=== PATIENT | female | born 1970 | race Caucasian/White ===

== ENCOUNTER 2022-07-20 12:41 | Outpatient (OUT) | payer OTHER, SELFPAY ==
[2022-07-20 13:56] LABS: Alanine Aminotransferase 45 U/L (14-59); Albumin Globulin Ratio 1.1; Albumin Level 3.9 g/dL (3.4-5.0); Alkaline Phosphatase 143 U/L (46-116); Anion Gap 11.6; Aspartate Amino Transferase 36 U/L (15-37); BUN Creatinine Ratio 24.5; Bilirubin Total 0.6 mg/dL (0.2-1.0); Calcium 8.9 mg/dL (8.5-10.1); Carbon Dioxide 27.1 mmol/L (21.0-32.0); Chloride 101 mmol/L (98-107); Estimated GFR (African America >60 (>=60); Estimated GFR (Non-African Ame >60 (>=60); Globulin 3.5 g/dL; Glucose 91 mg/dL (74-106); Magnesium 2.1 mg/dL (1.8-2.4); Phosphorus 4.1 mg/dL (2.6-4.7); Potassium 3.7 mmol/L (3.5-5.1); Sodium 136 mmol/L (136-145); Total Protein 7.4 g/dL (6.4-8.2)
[2022-07-20 14:03] LABS: Basophils Percent Auto 0.5 % (0.2-2.0); Eosinophils Absolute Auto 0.1 10^3/uL (0.0-0.7); Eosinophils Percent Auto 1.9 % (0.9-7.0); Hematocrit 40.7 % (36.0-48.0); Hemoglobin 13.4 g/dL (12.0-16.0); Immature Granulocytes Abs Auto 0.01 10^3/uL (0.00-0.03); Immature Granulocytes Pct Auto 0.2 % (0.0-0.5); Lymphocytes Absolute Auto 1.6 10^3/uL (1.2-3.8); Lymphocytes Percent Auto 27.3 % (20.5-60.0); Mean Corpuscular HGB Conc 32.9 g/dL (29.9-35.2); Mean Corpuscular Hemoglobin 30.4 pg (26.7-34.0); Mean Corpuscular Volume 92.3 fL (81.0-99.0); Mean Platelet Volume 10.9 fL (9.5-13.5); Monocytes Absolute Auto 0.4 10^3/uL (0.3-0.8); Monocytes Percent Auto 6.7 % (1.7-12.0); Neutrophils Absolute Auto 3.7 10^3/uL (1.4-6.5); Neutrophils Percent Auto 63.4 % (43.0-75.0); Platelet Count 192 10^3/uL (150-450); Red Blood Count 4.41 10^6/uL (4.20-5.40); White Blood Count 5.8 10^3/uL (4.0-11.0)
[2022-07-24 19:07] LABS: Vitamin B1 (Thiamine), Blood 133.2 nmol/L (66.5-200.0)
== END 2022-07-20 12:42 ==
LOC: LAB 12:46
PROVIDERS: PCP Family Medicine
DX: K90.9 Intestinal malabsorption, unspecified (principal); Z98.84 Bariatric surgery status; I10 Essential (primary) hypertension; E11.9 Type 2 diabetes mellitus without complications; R60.9 Edema, unspecified; K21.9 Gastro-esophageal reflux disease without esophagitis
CPT/HCPCS: 36415; 80053; 82306; 82607; 82728; 82746; 83540; 83735; 84100; 84425; 85025

== ENCOUNTER 2023-07-26 09:10 | Outpatient (OUT) | payer OTHER, SELFPAY ==
[2023-07-26 09:43] LABS: Basophils Percent Auto 0.6 % (0.2-2.0); Eosinophils Absolute Auto 0.1 10^3/uL (0.0-0.7); Eosinophils Percent Auto 2.7 % (0.9-7.0); Hematocrit 41.5 % (36.0-48.0); Hemoglobin 13.5 g/dL (12.0-16.0); Lymphocytes Absolute Auto 1.7 10^3/uL (1.2-3.8); Lymphocytes Percent Auto 34.2 % (20.5-60.0); Mean Corpuscular HGB Conc 32.5 g/dL (29.9-35.2); Mean Corpuscular Hemoglobin 30.4 pg (26.7-34.0); Mean Corpuscular Volume 93.5 fL (81.0-99.0); Mean Platelet Volume 10.6 fL (9.5-13.5); Monocytes Absolute Auto 0.4 10^3/uL (0.3-0.8); Monocytes Percent Auto 7.4 % (1.7-12.0); Neutrophils Absolute Auto 2.7 10^3/uL (1.4-6.5); Neutrophils Percent Auto 55.1 % (43.0-75.0); Platelet Count 182 10^3/uL (150-450); Red Blood Count 4.44 10^6/uL (4.20-5.40); Red Cell Distribution Width 13.4 % (11.0-15.0); White Blood Count 4.9 10^3/uL (4.0-11.0)
[2023-07-26 10:29] LABS: Percent Iron Saturation 24.6 %
[2023-07-26 10:38] LABS: Alanine Aminotransferase 82 U/L (14-59); Albumin Globulin Ratio 1.2; Alkaline Phosphatase 133 U/L (46-116); Anion Gap 12.6; Aspartate Amino Transferase 55 U/L (15-37); BUN Creatinine Ratio 26.8; Bilirubin Total 0.7 mg/dL (0.2-1.0); Calcium 8.8 mg/dL (8.5-10.1); Carbon Dioxide 27.3 mmol/L (21.0-32.0); Chloride 103 mmol/L (98-107); Estimated GFR (African America >60 (>=60); Estimated GFR (Non-African Ame >60 (>=60); Globulin 3.4 g/dL; Glucose 94 mg/dL (74-106); Phosphorus 3.9 mg/dL (2.6-4.7); Potassium 3.9 mmol/L (3.5-5.1); Sodium 139 mmol/L (136-145); Total Protein 7.4 g/dL (6.4-8.2)
[2023-07-29 16:07] LABS: Vitamin B1 (Thiamine), Blood 152.2 nmol/L (66.5-200.0)
== END 2023-07-26 09:11 | disposition home or self-care (01) ==
LOC: LAB 09:12
PROVIDERS: PCP Family Medicine; Visit Provider Nurse Practitioner Family
DX: K90.9 Intestinal malabsorption, unspecified (principal); Z98.84 Bariatric surgery status; I10 Essential (primary) hypertension; M19.90 Unspecified osteoarthritis, unspecified site; R60.9 Edema, unspecified; K21.9 Gastro-esophageal reflux disease without esophagitis
CPT/HCPCS: 36415; 80053; 82306; 82607; 82728; 82746; 83540; 83550; 83735; 84100; 84425; 85025

== ENCOUNTER 2024-07-11 09:14 | Outpatient (OUT) | payer OTHER, SELFPAY ==
--- OUTSIDE RECORDS SUMMARY | 2012-06-04 07:00 | XMS_ITS | Encounter Summary ---
Author Organization [facility] Address [address] [place] [address] Care Team Providers Care Occupational Health And Safety Officer Name Role Phone Unavailable Primary Care Provider Unavailabl e Encounter Details Date Type Department Care Team (Late st Contact Info) Description 06/04/2012 7:00 AM EDT Hospital Encounter [facility] [address] [place], [place] [id number] [place] [address] [place], [place] [id number] Social History Tobacco Use Types Packs/Day Years Used Date Smoking Tobacco: Never Smokeless Tobacco: Never Alcohol Use Standard Drinks/Week Comments Yes 0 (1 standard drink = 0.6 oz pur e alcohol) socially Comments No Sex and Gender Information Value Date Recorded Sex Assigned at Not on file Legal Sex Female 11:04 AM EDT Gender Identity Not on file Sexual Orientation Not on file documented as of this encounter Plan of Treatment Not on file documented as of this encounter Procedures Procedure Name Priority Date/Time Associated Diagnosis Comments EKG REPORT 06/18/2012 2:37 PM EDT OPERATIVE REPORT Routine 06/17/2012 8:30 AM EDT documented in this encounter Results * EKG REPORT (06/18/2012 2:37 PM EDT) Narrative Procedure Note SCANNING, HPF - 06/18/2012 2:37 PM EDT us Hpf Scanning ECG ORDERABLES Final Result * Operative Report (06/17/2012 8:30 AM EDT) 06/17/2012 8:30 AM EDT Narrative [facility] OR REPORTS - 06/17/2012 8:30 AM EDT PERIOPERATIVE RECORD [facility] - INTRAOPERATIVE RECORD PATIENT NAME: MERRICK URIBE GENDER: F DATE: 1970 AGE: 41 Years ACTUAL CASE START (SV SA PT OR IN): 06/13/2012 11:25 PATIENT INFORMATION PATIENT IDENTIFICATION: ARMBAND BIRTHDAY CASE GENERAL INFORMATION ACTUAL OR: OR ROOM 4 AT [facility] PROCEDURE CONSENT ON CHART: Yes HISTORY / PHYSICAL ON CHART: Yes UNPLANNED RETURN TO SURGERY WITHIN 24 HOURS?: No SITE MARKED / PROCEDURE AGREES WITH: SURGERY SCHEDULE: Yes SURGERY CONSENT: Yes HISTORY PHYSICAL: Yes PER DOCTOR'S ORDER: Yes PREOP ANTIBIOTIC CASE SERVICE: PLASTIC/RECONSTRUCTIVE SURGERY CASE TYPE: SCHEDULED PATIENT TYPE: AMBULATORY SURGERY CASE WOUND CLASS: CLASS I / CLEAN PREOP DIAGNOSIS: COSMETIC POSTOP DIAGNOSIS: COSMETIC ARE IMPLANTS NEEDED?: No PATIENT ASSESSMENT CHECKER INTERVIEW: 11:20 SKIN CONDITION: WARM, DRY, AND INTACT PATIENT LIMITATIONS: NO LIMITATIONS DOCUMENTED BLEEDING RISK: No INFECTION PRIOR TO ANESTHESIA: No CASE STAFF NAME:TEODORO JOSE RN ROLE:CHECKER NAME:ERASMO NG CST ROLE:SCRUB HYDRAULIC PLUMBER HELPER NAME:OTIS DUFF SWITCHBOARD RECEPTIONIST ROLE:ANESTHESIA SWITCHBOARD RECEPTIONIST NAME:DAINEL BARRIOS MDA ROLE:ANESTHESIOLOGIST NAME:ROGER ROLE:RESIDENT CASE ANESTHESIA INFORMATION ANESTHESIA TYPE: GENERAL ANESTHESIA Page 1 of 5 on 06/17/2012 08:32 PATIENT NAME: MERRICK URIBE GENDER: F DATE: 1970 AGE: 41 Years ACTUAL CASE START (SV SA PT OR IN): 06/13/2012 11:25 ASA CLASSIFICATION: ASA 2 IV ASSESSMENT TIMES SCHED CASE START: 06/13/2012 11:30 SCHED CASE STOP: 06/13/2012 15:30 ANESTHESIA READY: 06/13/2012 11:30 ACTUAL CASE START (SV SA PT OR IN): 06/13/2012 11:25 ACTUAL CASE STOP (SV SA PT OR OUT): 06/13/2012 14:40 SURGICAL SAFETY CHECKLIST BEFORE INDUCTION OF ANESTHESIA DATE/TIME: 06/13/2012 11:20 PATIENT HAS CONFIRMED IDENTITY, SITE, PROCEDURE AND CONSENT: Yes SITE MARKED : Yes PATIENT ALLERGIES REVIEWED AND CONFIRMED: Yes BEFORE SKIN INCISION DATE/TIME: 06/13/2012 11:27 ALL TEAM MEMBERS HAVE INTRODUCED THEMSELVES BY NAME AND ROLE: Yes SURGEON, ANESTHESIA, AND NURSE VERBALLY CONFIRMED PATIENT, SITE, AND PROCEDURE: Yes SURGEON REVIEWED CRITICAL OR UNEXPECTED STEPS, OPERATIVE DURATION, AND ANTICIPATED BLOOD LOSS: Yes ANESTHESIA HAS REVIEWED PATIENT SPECIFIC CONCERNS: Yes NURSING TEAM REVIEWED EQUIPMENT ISSUES/CONCERNS AND CONFIRMED STERILITY, INCLUDING INDICATOR : Yes ANTIBIOTIC PROPHYLAXIS HAS BEEN GIVEN WITHIN THE LAST 60 MINUTES: Yes ESSENTIAL IMAGING DISPLAYED: Not Applicable BEFORE PATIENT LEAVES OPERATING ROOM NURSE VERBALLY CONFIRMED WITH THE TEAM: NAME OF PROCEDURE RECORDED: Yes INSTRUMENT, SPONGE AND NEEDLE COUNTS ARE CORRECT: Yes HOW SPECIMEN IS LABELED, INCLUDING PATIENT NAME: Yes EQUIPMENT PROBLEMS TO BE ADDRESSED: Yes PROCEDURE GENERAL INFORMATION ACTUAL PROCEDURE: ABDOMINOPLASTY-ARROWHEAD LIPOSUCTION BILATERAL MEDIAL/LATERAL THIGHS AND KNEES DATE/TIME RECORDED: 06/13/2012 11:56 CORRECT PATIENT: Yes CORRECT SITE: Yes CORRECT PROCEDURE: YES CORRECT PROCEDURE CONSENT FORM: YES CORRECT POSITION: YES CORRECT IMAGE/RESULTS: YES CORRECT ANTIBIOTIC/IRRIGATION FLUIDS ADMINISTERED: YES SAFETY PRECAUTIONS: YES CORRECT EQUIPMENT: YES ACTUAL PROCEDURE START (INCISION TIME): 06/13/2012 11:58 ACTUAL PROCEDURE STOP (CLOSURE TIME): 06/13/2012 14:30 PRIMARY SURGEON: DANIEL BRUSH MD PRIMARY SURGEON OR IN: 06/13/2012 11:25 PRIMARY SURGEON OR OUT: 06/13/2012 14:15 PROCEDURE SERVICE: PLASTIC/RECONSTRUCTIVE SURGERY PROCEDURE POSITIONAL DEVICES POSITION FOR SURGERY: SUPINE Page 2 of 5 on 06/17/2012 08:32 PATIENT NAME: MERRICK URIBE GENDER: F DATE: 1970 AGE: 41 Years ACTUAL CASE START (SV SA PT OR IN): 06/13/2012 11:25 POSITIONED BY: TEODOOR JOSE RN TABLE: [facility] 3085 POSITIONAL DEVICES: ARMBOARDS BILATERAL SITE: ARMS BILATERAL PROCEDURE PREP SKIN ASSESSMENT: WARM, DRY, AND INTACT SITE: NIPPLES TO MIDTHIGH SKIN PREP: Yes HAIR REMOVAL: No SITE: NIPPLES TO MIDTHIGH PREP SOLUTION: HIBICLENS (4% CHLOREXIDIN GLUCONATE) PREP BY: TEODORO JOSE RN PROCEDURE COUNTS COUNT TYPE: INITAL [X] SPONGES [X] SHARPS [ ] INSTRUMENTS COUNT CORRECT: Yes CHECKER: TEODORO JOSE RN SCRUB: ERASMO NG SOCIAL WELFARE ADMINISTRATOR COUNT TYPE: ENDING [X] SPONGES [X] SHARPS [ ] INSTRUMENTS COUNT CORRECT: Yes CHECKER: TEODORO JOSE RN SCRUB: ERASMO NG SOCIAL WELFARE ADMINISTRATOR [ ] X-RAY TAKEN [X] PHYSICIAN NOTIFIED PROCEDURE EQUIPMENT DESCRIPTION:GENERATOR ESU SERIAL #:[id number] START:06/13/2012 12:52 : SETTIN/40 SITE: SHOULDER RIGHT POSTERIOR ADMINISTERED BY:TEODORO JOSE RN USAGE COMMENT:site clear pre and post op DESCRIPTION:UNIT FORCED AIR WARMER (JEAN MARIE HUGGER) DESCRIPTION:PUMP EPC SERIAL #:[id number] START:06/13/2012 12:53 : SITE: LEGS BILATERAL ADMINISTERED BY:TEODORO JOSE RN USAGE COMMENT:SITE CLEAR PRE AND POST OP PROCEDURE CARE APPARATUS CARE APPARATUS: SEQUENTIAL COMPRESSION DEVICE SITE: LEGS BILATERAL PROCEDURE GENERAL INFORMATION ACTUAL PROCEDURE: LIPOSUCTION OF BILATERAL MEDIAL/LATERAL THIGHS AND KNEES PRIMARY SURGEON: DANIEL BRUSH MD PROCEDURE SERVICE: PLASTIC/RECONSTRUCTIVE SURGERY ABBR: OTH/UNK PROCEDURE COUNTS [ ] X-RAY TAKEN Page 3 of 5 on 06/17/2012 08:32 PATIENT NAME: MERRICK URIBE GENDER: F DATE: 1970 AGE: 41 Years ACTUAL CASE START (SV SA PT OR IN): 06/13/2012 11:25 [ ] PHYSICIAN NOTIFIED PROCEDURE EQUIPMENT DESCRIPTION:GENERATOR ESU DESCRIPTION:UNIT FORCED AIR WARMER (JEAN MARIE HUGGER) CASE MEDICATIONS XYLOCAINE 1% W/ EPI 50ML MIXED WITH 0.9% INJECTABLE SALINE 150ML [ML] ORDERING DRDanni:DANIEL BRUSH MD TIME GIVEN:06/13/2012 13:38 DOSE:300 ML ROUTE:OPSITE SITE:ABDOMEN PATIENT IDENTIFICATION:ARMBAND BIRTHDAY ADMINISTERED BY:DANIEL BRUSH MD 300 ML Total for XYLOCAINE 1% W/ EPI 50ML MIXED WITH 0.9% INJECTABLE SALINE 150ML [ML] in ML *MEDICATION ACCESS [] TIME GIVEN:06/13/2012 12:55 : 0 Total for *MEDICATION ACCESS [] in CEFAZOLIN 1 GRAM IVPB [GM] ORDERING DRDanni:DANIEL BRUSH MD TIME GIVEN:06/13/2012 13:30 DOSE:1 GM ROUTE:IV MEDICATION INDICATOR:ANTIBIOTIC PATIENT IDENTIFICATION:ARMBAND BIRTHDAY ADMINISTERED BY:DANIEL BRUSH MD 1 GM Total for CEFAZOLIN 1 GRAM IVPB [GM] in GM GENTIAN CORA 1ML SYRINGE [APPLIC] ORDERING DR.:DANIEL BRUSH MD TIME GIVEN:06/13/2012 13:37 DOSE:1 APPLIC ROUTE:OPSITE PATIENT IDENTIFICATION:ARM BIRTHDAY ADMINISTERED BY:DANIEL BRUSH MD MEDICATION COMMENT: USED FOR MARKING DURING SURGERY 1 APPLIC Total for GENTIAN CORA 1ML SYRINGE [APPLIC] in APPLIC CLYSIS SOLN: 0.9% NACL 1000ML IV MIXED WITH 1ML EPINEPHRINE 1:1000 [ML] ORDERING DR.:DANIEL BRUSH MD TIME GIVEN:06/13/2012 13:39 DOSE:2000 ML ROUTE:OPSITE SITE:ABDOMEN PATIENT IDENTIFICATION:ARM BIRTH ADMINISTERED BY:DANIEL BRUSH MD 2000 ML Total for CLYSIS SOLN: 0.9% NACL 1000ML IV MIXED WITH 1ML EPINEPHRINE 1:1000 [ML] in ML Page 4 of 5 on 06/17/2012 08:32 PATIENT NAME: MERRICK URIBE GENDER: F DATE: 1970 AGE: 41 Years ACTUAL CASE START ( SA PT OR IN): 06/13/2012 11:25 BUPIVICAINE 0.5% W/EPI (MARCAINE) [ML] ORDERING DRDanni:DANIEL BRUSH MD TIME GIVEN:06/13/2012 12:56 DOSE:40 ML ROUTE:OPSITE SITE:ABDOMEN MEDICATION INDICATOR:LOCAL PATIENT IDENTIFICATION:ARM BIRTHDAY ADMINISTERED BY:DANIEL BRUSH MD 40 ML Total for BUPIVICAINE 0.5% W/EPI (MARCAINE) [ML] in ML CASE TUBES, DRAINS, CATHETERS TUBE, DRAIN, CATHETER:DRAIN RUSTAM-ANTOINE FLAT 10MM [id number] SITE:ABDOMEN INSERTED DATE/TIME:06/13/2012 13:41 INSERTED BY:DANIEL BRUSH MD [ ] TDC IN PLACE ON ARRIVAL TYPE:RUSTAM ANTOINE SIZE:10MM [X]ASSESSMENT COMPLETED RECORDED TIME:06/13/2012 13:41 [ ]DISCONTINUED : CASE DRESSINGS/PACKING DRESSING/PACKING: ABDOMINAL BINDER CASE OUTCOME/DISCHARGE LEVEL OF CONSCIOUSNESS: UNDER CARE OF ANESTHESIA TRANSFER REPORT TIME: 06/13/2012 14:20 REPORT GIVEN BY: TEODORO JOSE RN VERBAL REPORT GIVEN TO: MANASA PEDRO RN TRANSFERRED TO: PHASE I TRANSFERRED BY: TEODORO JOSE RN, JENNY CRNA TRANSFER MODE: STRETCHER DISCHARGE FROM OR WITH: DEVICE: NASAL CANNULA COMMENT: 02 4 LITER SIGNATURE INTRAOP NURSE: TEODORO JOSE RN Page 5 of 5 on 06/17/2012 08:32 us Unknown Provider Result GENERAL SURGICAL ORDERAB LES Edited Result - Final [facility] OR REPORTS documented in this encounter Visit Diagnoses Not on filedocumented in this encounter
--- OUTSIDE RECORDS SUMMARY | 2023-08-23 09:30 | XMS_ITS | Continuity of Care Document ---
Author Organization [facility] [facility] Address [address] [place] [address] [place] [address] Phone Care Team Providers Care Tool Trouble Shooter Name Role Phone Annabel Larkin CNP Unavailable Unavailable Procedures Procedure Date OFFICE/OUTPATIENT VISIT, EST OFFICE/OUTPATIENT VISIT, EST OFFICE/OUTPATIENT VISIT, EST POSTOP FOLLOW-UP VISIT POSTOP FOLLOW-UP VISIT LAP GASTRIC BYPASS/KAIDEN-EN-Y Gastric Bypass OFFICE/OUTPATIENT VISIT, EST PSYCH DIAGNOSTIC EVALUATION PSYCL/NRPSYC TST PHY/QHP 1ST PSYCL/NRPSYC TST PHY/QHP EA OFFICE/OUTPATIENT VISIT, [facility] Advance Directives Directive Yes / No Effective Date File Name No Information Encounters Encounter Description Practice Location Reason(s) For Visit Diagnoses Date Provider Providers Copied on Encounter OFFICE/OUTPATI ENT VISIT, [facility] [employer] [facility], [address], [place], [place], [id number], [place] tel:[phone] [facility] No Information Chaya Jin. [address], [place], [place], [id number], [place]. tel:[phone] Referring Provider: Annabel Larkin, [address], [place], [address]. tel:[phone] OFFICE/OUTPATI ENT VISIT, [facility] [employer] [facility], [address] [place] [address] B, [place], [place], [id number], [place] tel:[phone] [facility] No Information Chaya Jin. [address], [place], [place], [id number], [place]. tel:[phone] Referring Provider: Annabel Larkin, [address] [place] [address] [address], [place], [address]. tel:[phone] OFFICE/OUTPATI ENT VISIT, [facility] [place], [address] [place] [address] B, [place], [place], [id number], [place] tel:[phone] [facility] No Information Chaya Jin. [address] [place] [address] [address], [place], [place], [id number], [place]. tel:[phone] Referring Provider: Annabel Larkin, [address] [place] [address] [address], [place], [address]. tel:[phone] [facility] [employer] [facility], [address] [place] [address] B, [place], [id number], [place] tel:[phone] [facility] No Information Chaya Jin. [address] [place] [address] [address], [place], [place], [id number], [place]. tel:[phone] Referring Provider: Annabel Larkin, [address], [place], [address]. tel:[phone] [facility], [address] [place] [address] B, [place], [place], [id number], [place] tel:[phone] [facility] No Information Chaya Jin. [address] [place] [address] [address], [place], [place], [id number], [place]. tel:[phone] Referring Provider: Annabel Larkin, [address] [place] [address] [address], [place], [address]. tel:[phone] [facility] [employer] [facility], [address] [place] [address] [address], [place], [place], [id number], [place] tel:[phone] [facility] IP No Information Martha Ruby. [address], [place], [place], [id number], [place]. tel:[phone] Referring Provider: Tung Escoto, [address], [place], [address]. tel:[phone] [facility], [address] [place] [address] [address], [place], [place], [id number], [place] tel:[phone] [facility] IP No Information Chaya Jin. [address] [place] [address] [address], [place], [place], [id number], [place]. tel:[phone] Referring Provider: Annabel Larkin, [address] [place] [address] [address], [place], [address]. tel:[phone] OFFICE/OUTPATI ENT VISIT, [facility] [employer] [facility], [address] [place] [address] [address], [place], [place], [id number], [place] tel:[phone] [facility] No Information Martha Ruby. [address] [place] [address] [address], [place], [place], [id number], [place]. tel:[phone] Referring Provider: Tung Escoto, [address], [place], [address]. tel:[phone] PSYCH DIAGNOSTIC EVALUATION [facility], [address] [place] [address] [address], [place], [place], [id number], [place] tel:[phone] [facility] No Information Nikolai Zavala. [address], [place], [place], [address], [place]. tel:[phone] Referring Provider: Sally Menchaca, [address] [place] [address] [address], [place], [address]. tel:[phone] OFFICE/OUTPATI ENT VISIT, [facility], [address], [place], [place], [id number], [place] tel:[phone] [facility] No Information Martha Ruby. [address], [place], [place], [id number], [place]. tel:[phone] Referring Provider: Tung Escoto, [address], [place], [address]. tel:[phone] Family History Family Member Type Diagnosis Age At Onset No Information Payers Payer name Insurance type Covered libertarian ID Helen sierra(charlie Garcia From [facility] [id number] Social History Type Description Quantity Date Captured Comments Sex Female Smoking Status No Information Chief Complaint And Reason For Visit No Information Reason For Referral Reason For Referral No Information Plan Of Treatment Date Type Action Status Appointment Quique Pat BOOKED History Of Present Illness Encounter Date Complaint History Of Prese nt Illness No Information Functional Status Date Functional Assessmen t No Information Instructions Date Instruction Additional Infor mation No Information Assessments Type Assessment Date No Information Patient Care Teams Name Effective Dates (start - stop) Status Members No Information
--- OUTSIDE RECORDS SUMMARY | 2024-07-11 09:17 | XMS_ITS | Clinical Summary ---
Author Organization [facility] Address [address] [place] [address] Care Team Providers Care Bait Painter Name Role Phone Raf Arrington MD Primary Care Provider Allergies No known active allergies Medications multivitamin (THERAGRAN) per tablet Take 1 tablet by mouth daily. Active VITAMIN D-3 (COLECALCIFEROL ) 400 UNITS TABS Take by mouth daily. Active famotidine (PEPCID) 20 MG tabletIndicatio ns:Preoperative testing Take am of procedure with sip of water 1 tablet 0 3 Active metoclopramide (REGLAN) 10 MG tabletIndicatio ns:Preoperative testing Take am of procedure with small sip of water 1 tablet 0 3 Active scopolamine (TRANSDERM-SCOP ) 1.5 MGIndications:P reoperative testing Bring patch with you day of procedure 1 patch 0 3 Active famotidine (PEPCID) 10 MG tablet Take 10 mg by mouth Production Quality Manager. 3 Active vitamin B-12 (CYANOCOBALAMIN ) 1000 MCG tablet Take 1,000 mcg by mouth daily. Active BYSTOLIC 20 MG TABS tablet 7 Active pantoprazole (PROTONIX) 40 MG tablet 7 Active losartan (COZAAR) 100 MG tablet 7 Active cephALEXin (KEFLEX) 500 MG capsule 3 Active oxyCODONE-aceta minophen (PERCOCET) 5-325 MG per tablet 3 Active HYDROcodone-zoltan taminophen (NORCO) 5-325 MG per tablet Take 1 tablet by mouth every 4 hours as needed for Pain. 40 tablet 0 3 Active Active Problems Problem Noted Date Diagnosed Date Other plastic surgery for unacceptable cosmetic appearance 04/22/2012 Social History Tobacco Use Types Packs/Day Years Used Date Smoking Tobacco: Never Smokeless Tobacco: Never Alcohol Use Standard Drinks/Week Comments Yes 0 (1 standard drink = 0.6 oz pur e alcohol) socially Comments No Sex and Gender Information Value Date Recorded Sex Assigned at Not on file Legal Sex Female 11:04 AM EDT Gender Identity Not on file Sexual Orientation Not on file Last Filed Vital Signs Vital Sign Reading Time Taken Comments Blood Pressure 140/78 11/16/2016 4:33 PM EDT Pulse 76 11/16/2016 4:33 PM EDT Temperature 36.1 C (97 F) 06/13/2012 2:40 PM EDT Respiratory Rate 18 11/16/2016 4:33 PM EDT Oxygen Saturation 98% 06/13/2012 3:25 PM EDT Inhaled Oxygen Concentration - - Weight 111.6 kg (246 lb) 11/16/2016 4:33 PM EDT Height 180.3 cm (5' 11 ) 11/16/2016 4:33 PM EDT Body Mass Index 34.31 11/16/2016 4:33 PM EDT Plan of Treatment Not on file Care Teams Bait Painter Relationship Specialty Start Date End Date Raf Arrington MD [address] [place] [address] PCP - General 06/11/12
--- OUTSIDE RECORDS SUMMARY | 2024-07-11 09:17 | XMS_ITS | Encounter Summary ---
Author Organization [facility] Address [address] [address] Care Team Providers Care Carton Counter Feeder Name Role Phone Raf Arrington MD Primary Care Provider [phone] Encounter Details Date Type Department Care Team (Late st Contact Info) Description 06/12/2012 [address] [facility] [address] [place] [address] Irene Ferrer, GUNJAN Social History Tobacco Use Types Packs/Day Years Used Date Smoking Tobacco: Never Assessed Comments No Sex and Gender Information Value Date Recorded Sex Assigned at Not on file Legal Sex Female 11:04 AM EDT Gender Identity Not on file Sexual Orientation Not on file documented as of this encounter Plan of Treatment Not on file documented as of this encounter Visit Diagnoses Not on filedocumented in this encounter Care Teams Carton Counter Feeder Relationship Specialty Start Date End Date Raf Arrington MD [address] [place] [address] [address] [place], [place] [id number] PCP - General 06/11/12 documented as of this encounter
--- OUTSIDE RECORDS SUMMARY | 2024-07-11 09:36 | XMS_ITS | CCD ---
Author Organization [facility] Care Team Providers Care Res Counselor Name Role Phone HOUSE, DR SOUSA Admitting Unavailable HOUSE, DR SOUSA Attending Unavailable HOUSE, DR SOUSA Primary Care Unavailable HOUSE, DR SOUSA Consulting Unavailable HOUSE, DR SOUSA Primary Care Unavailable KATKO, ENRRIQUE Barahona Admitting Unavailable KATKO, ENRRIQUE Barahona Attending Unavailable MARKER, DR CHOI Consulting Unavailable KATKO, ENRRIQUE Barahona Consulting Unavailable CHAKYASHLEE Consulting Unavailable LALOR, ROBERTA Admitting Unavailable LALOR, ROBERTA Attending Unavailable HOUSE, DR SOUSA Primary Care Unavailable LALOR, ROBERTA Consulting Unavailable MISC, DR BARRIOS Admitting Unavailable MISC, DR BARRIOS Attending Unavailable HOUSE, DR SOUSA Primary Care Unavailable MISC, DR BARRIOS Consulting Unavailable LALOR, ROBERTA Admitting Unavailable LALOR, ROBERTA Attending Unavailable HOUSE, DR SOUSA Primary Care Unavailable LALOR, ROBERTA Consulting Unavailable Problems Problem Classification Problem Date Documented Da te Episodic/Chronic Anxiety disorders (1 source) Other specified anxiety disorders; Translations: [OTHER SPECIFIED ANXIETY DISORDERS] Onset: 02-15-2022 Chronic Diabetes mellitus without complication (5 sources) Type 2 diabetes mellitus without complications; Translations: [TYPE 2 DM WITHOUT COMPLICATIONS] Onset: 04-07-2021 Chronic Esophageal disorders (5 sources) Gastro-esophageal reflux disease without esophagitis; Translations: [GERD WITHOUT ESOPHAGITIS] Onset: 05-10-2021 Chronic Essential hypertension (2 sources) Essential (primary) hypertension; Translations: [ESSENTIAL PRIMARY HYPERTENSION] Onset: 01-16-2022 Chronic Osteoarthritis (1 source) Unspecified osteoarthritis, unspecified site; Translations: [UNSPECIFIED OSTEOARTHRITIS UNS SITE] Onset: 01-16-2022 Chronic Other gastrointestinal disorders (5 sources) Intestinal malabsorption, unspecified; Translations: [INTESTINAL MALABSORPTION UNS] Onset: 09-22-2021 Chronic Other gastrointestinal disorders (5 sources) Bariatric surgery status; Translations: [BARIATRIC SURGERY STATUS] Onset: 09-23-2021 Episodic Other nutritional; endocrine; and metabolic disorders (1 source) Morbid (severe) obesity due to excess calories; Translations: [MORBID SEVERE OBES D/T EXCESS ROSEANNA] Onset: 05-12-2021 Chronic Residual codes; unclassified (3 sources) Disorientation, unspecified; Translations: [DISORIENTATION UNSPECIFIED] Onset: 02-13-2022 Episodic Residual codes; unclassified (1 source) Other amnesia; Translations: [OTHER AMNESIA] Onset: 02-15-2022 Episodic Residual codes; unclassified (1 source) Edema, unspecified; Translations: [EDEMA UNSPECIFIED] Onset: 01-16-2022 Episodic Unclassified (1 source) CONTACT W/AND (SUSP) EXPOS COVID-19; Translations: [CONTACT W/AND (SUSP) EXPOS COVID-19] Onset: 02-15-2022 Results Test Name Value Interpretation Reference Range Facility CBC AUTO DIFFon 02-13-2022 BASO # 0.0 103/ul Normal 0.0-0.1 [facility] Comment on above: Performed By: #### M GABRIEL Martinez, PHOS #### [facility] [address] [place] [address] Dr. Lorena Graves Basophils/100 WBC (Bld) 0.4 % Normal 0.2-2.0 [facility] Comment on above: Performed By: #### Bibi Martinez CMP, PHOS #### [facility] [address] [place] [address] Dr. Lorena Graves EO # 0.1 103/ul Normal 0.0-0.7 [facility] Comment on above: Performed By: #### Bibi Martinez CMP, PHOS #### [facility] [address] [place] [address] Dr. Lorena Graves Eosinophils/100 WBC (Bld) 1.1 % Normal 0.9-7.0 [facility] Comment on above: Performed By: #### Bibi Martinez CMP, PHOS #### [facility] [address] [place] [address] Dr. Lorena Graves Erythrocyte distribution width (RBC) [Ratio] 13.3 % Normal 11.0-15.0 [facility] Comment on above: Performed By: #### Bibi Martinez CMP, PHOS #### [facility] [address] [place] [address] Dr. Lorena Graves Hematocrit (Bld) [Volume fraction] 38.9 % Normal 36.0-48.0 [facility] Comment on above: Performed By: #### M G, CMP, PHOS #### [facility] [address] [place] [address] Dr. Lorena Graves Hemoglobin (Bld) [Mass/Vol] 13.7 g/dL Normal 12.0-16.0 [facility] Comment on above: Performed By: #### M G, CMP, PHOS #### [facility] [address] [place] [address] Dr. Lorena Graves IG # 0.03 10e3/ul Normal 0.00-0.03 [facility] Comment on above: Performed By: #### M G, CMP, PHOS #### [facility] [address] [place] [address] Dr. Lorena Graves IG % 0.4 % Normal 0.0-0.5 [facility] Comment on above: Performed By: #### M G, CMP, PHOS #### [facility] [address] [place] [address] Dr. Lorena Graves LYMPH # 1.9 103/ul Normal 1.2-3.8 [facility] Comment on above: Performed By: #### M G, CMP, PHOS #### [facility] [address] [place] [address] Dr. Lorena Graves Lymphocytes/100 WBC (Bld) 24.2 % Normal 20.5-60.0 [facility] Comment on above: Performed By: #### M G, CMP, PHOS #### [facility] [address] [place] [address] Dr. Lorena Graves MANUAL DIFF REQ NO Normal [facility] Comment on above: Performed By: #### M G, CMP, PHOS #### [facility] [address] [place] [address] Dr. Lorena Graves MCH (RBC) [Entitic mass] 30.2 pg Normal 26.7-34.0 [facility] Comment on above: Performed By: #### M G, CMP, PHOS #### [facility] [address] [place] [address] Dr. Lorena Graves MCHC (RBC) [Mass/Vol] 35.2 g/dL Normal 29.9-35.2 [facility] Comment on above: Performed By: #### M G, CMP, PHOS #### [facility] [address] [place] [address] Dr. Lorena Graves MCV (RBC) [Entitic vol] 85.9 fL Normal 81.0-99.0 [facility] Comment on above: Performed By: #### M G, CMP, PHOS #### [facility] [address] [place] [address] Dr. Lorena Graves MONO # 0.4 103/ul Normal 0.3-0.8 [facility] Comment on above: Performed By: #### M G, CMP, PHOS #### [facility] [address] [place] [address] Dr. Lorena Graves Monocytes/100 WBC (Bld) 5.5 % Normal 1.7-12.0 [facility] Comment on above: Performed By: #### M G, CMP, PHOS #### [facility] [address] [place] [address] Dr. Lorena Graves NEUT # 5.4 103/ul Normal 1.4-6.5 [facility] Comment on above: Performed By: #### M G, CMP, PHOS #### [facility] [address] [place] [address] Dr. Lorena Graves Neutrophils/100 WBC (Bld) 68.4 % Normal 43.0-75.0 [facility] Comment on above: Performed By: #### M G, CMP, PHOS #### [facility] [address] [place] [address] Dr. Lorena Graves Platelet mean volume (Bld) [Entitic vol] 10.7 fL Normal 9.5-13.5 [facility] Comment on above: Performed By: #### M G, CMP, PHOS #### [facility] [address] [address] [address] Lorena Graves PLT 194 103/ul Normal 150-450 [facility] Comment on above: Performed By: #### M GABRIEL Martinez PHOS #### [facility] [address] [address] [address] Lorena Graves RBC 4.53 106/ul Normal 4.20-5.40 [facility] Comment on above: Performed By: #### Bibi Martinez CMP, PHOS #### [facility] [address] [address] [address] Lorena Graves WBC 7.9 103/ul Normal 4.0-11.0 [facility] Comment on above: Performed By: #### Bibi Martinez CMP PHOS #### [facility] [address] [address] [address] HEAD WO CONon 02-13-2022 CT HEAD WO CON EXAMINATION: CT HEAD WO CON HISTORY: Acute confusion COMPARISON: None. TECHNIQUE: CT examination of the head without IV contrast. Dose reduction techniques were achieved by using automated exposure control and/or adjustment of mA and/or kV according to patient size and/or use of iterative reconstruction technique. FINDINGS: No acute intracranial hemorrhage, mass effect, midline shift or extra-axial fluid collection. No ventriculomegaly, sulcal effacement or loss of booth/white matter differentiation. No acute osseous abnormality. The visualized paranasal sinuses and mastoid air cells are clear. Orbits and globes are unremarkable. IMPRESSION: No acute intracranial hemorrhage or mass effect. MRI would be more sensitive for the detection of an acute infarct. Electronically authenticated by: ASHLEE MASCORRO Date: 2022-02-13 20:52 Normal [facility]on SARS-CoV-2 (COVID-19) RNA TAYLOR+probe Ql (Unsp spec) Not detected Normal NOT DETECTED [facility] Comment on above: Result Comment: When diagnostic testing is negative, the possibility of a false negative should be considered in the context of a patient's recent exposures and the presence of clinical signs and symptoms consistent with SARS-CoV-2. This test is not yet approved or cleared by the [place] FDA. When there are no FDA-approved or cleared tests available, and other criteria are met, FDA can make tests available under an emergency access mechanism called an Emergency Use Authorization (EUA). The EUA for this test is supported by the [employer] Supervisor of Health and Human Service's declaration that circumstances exist to justify the emergency use of in vitro diagnostics for the detection and/or diagnosis of the virus that causes COVID-19. This EUA will remain in effect for the duration of the COVID-19 declaration justifying emergency of IVDs, unless it is terminated or revoked by the FDA (after which the test may no longer be used). Performed By: #### C VDTBH #### [facility] [address] [place] [address] Dr. Lorena Graves ER URINE PROFILEon 3 Bilirubin Ql (U) Negative Normal NEGATIVE [facility] Comment on above: Performed By: #### M G, CMP, PHOS #### [facility] [address] [place] [address] Dr. Lorena Graves Clarity (U) CLEAR Normal CLEAR [facility] Comment on above: Performed By: #### M G, CMP, PHOS #### [facility] [address] [place] [address] Dr. Lorena Graves Color (U) LT. YELLOW Normal YELLOW [facility] Comment on above: Performed By: #### M G, CMP, PHOS #### [facility] [address] [place] [address] Dr. Lorena Graves ERUAHD A micrscopic examination will be performed if indicated. Normal [facility] Comment on above: Performed By: #### M G, CMP, PHOS #### [facility] [address] [place] [address] Dr. Lorena Graves Glucose Ql (U) Negative Normal NEGATIVE [facility] Comment on above: Performed By: #### M G, CMP, PHOS #### [facility] [address] [place] [address] Dr. Lorena Graves Hemoglobin Ql (U) Negative Normal NEGATIVE [facility] Comment on above: Performed By: #### M G, CMP, PHOS #### [facility] [address] [place] [address] Dr. Lorena Graves Ketones Ql (U) 15 mg/dl Abnormal NEGATIVE [facility] Comment on above: Performed By: #### M G, CMP, PHOS #### [facility] [address] [place] [address] Dr. Lorena Graves LEUKOCYTES Negative Normal NEGATIVE [facility] Comment on above: Performed By: #### M G, CMP, PHOS #### [facility] [address] [address] [address] Lorena Graves Nitrite Ql (U) Negative Normal NEGATIVE [facility] Comment on above: Performed By: #### M G, CMP, PHOS #### [facility] [address] [place] [address] Dr. Lorena Graves pH (U) 5.5 [pH] Normal 5-9 [facility] Comment on above: Performed By: #### M G, CMP, PHOS #### [facility] [address] [place] [address] Dr. Lorena Graves SPEC GRAVITY 1.025 Normal 1.005-<=1.[address] [facility] Comment on above: Performed By: #### M G, CMP, PHOS #### [facility] [address] [place] [address] Dr. Lorena rGaves UA PROTEIN Negative Normal NEGATIVE/ TRACE [facility] Comment on above: Performed By: #### M G, CMP, PHOS #### [facility] [address] [place] [address] Dr. Lorena Graves UR MICRO IND NOT INDICATED Normal [facility] Comment on above: Performed By: #### M G, CMP, PHOS #### [facility] [address] [place] [address] Dr. Lorena Graves Urobilinogen Qn (U) 0.2 {Magdalene'U}/dL Normal 0.2 - 1. 0 [facility] Comment on above: Performed By: #### M G, CMP, PHOS #### [facility] [address] [place] [address] Dr. Lorena Graves INFLUENZA A AND B AGon 02-13 INFLUANE SEE BELOW Normal [facility] Comment on above: Result Comment: Nega tive for Flu A protein angiten. Infection due to Flu A cannot be ruled out. Flu A angiten in the sample may be below the detection limit of the test. Performed By: #### I NFLUAB #### [facility] [address] [place] [address] Dr. [facility] Normal [facility] Comment on above: Result Comment: Nega tive for Flu B protein antigen. Infection due to Flu B cannot be ruled out. Flu B antigen in the sample may be below the detection limit of the test. Performed By: #### I NFLUAB #### [facility] [address] [place] [address] Dr. Lorena Graves INFLUENZA A AG Negative Normal NEGATIVE SEE COMMENT [facility] Comment on above: Performed By: #### I NFLUAB #### [facility] [address] [place] [address] Dr. Lorena Graves INFLUENZA B AG Negative Normal NEGATIVE SEE COMMENT [facility] Comment on above: Performed By: #### I NFLUAB #### [facility] [address] [place] [address] Dr. Lorena Graves PROF CHEM 8 (BAS METB)on Anion gap [Moles/Vol] 12.6 mmol/L Normal [facility] Comment on above: Performed By: #### B MP #### [facility] [address] [place] [address] Dr. Lorena Graves Calcium [Mass/Vol] 9.3 mg/dL Normal 8.5-10.1 [facility] Comment on above: Performed By: #### B MP #### [facility] [address] [place] [address] Dr. Lorena Graves Chloride [Moles/Vol] 104 mmol/L Normal 98-107 [facility] Comment on above: Performed By: #### B MP #### [facility] [address] [place] [address] Dr. Lorena Graves CO2 [Moles/Vol] 26.8 mmol/L Normal 21.0-32.0 [facility] Comment on above: Performed By: #### B MP #### [facility] [address] [address] [address] Lorena Graves Creatinine [Mass/Vol] 0.56 mg/dL Normal 0.55-1.02 [facility] Comment on above: Performed By: #### B MP #### [facility] [address] [address] [address] Lorena Graves EGFR-AF HUNGARIAN >60 Normal >=60 [facility] Comment on above: Performed By: #### B MP #### [facility] [address] [address] [address] Lorena Graves EGFR-NON AF HUNGARIAN >60 Normal >=60 [facility] Comment on above: Performed By: #### B MP #### [facility] [address] [address] [address] Lorena Graves Glucose [Mass/Vol] 94 mg/dL Normal 74-106 [facility] Comment on above: Performed By: #### B MP #### [facility] [address] [address] [address] Lorena Graves Potassium [Moles/Vol] 3.4 mmol/L Critically low 3.5-5.1 [facility] Comment on above: Performed By: #### B MP #### [facility] [address] [address] [address] Lorena Graves Sodium [Moles/Vol] 140 mmol/L Normal 136-145 [facility] Comment on above: Performed By: #### B MP #### [facility] [address] [address] [address] Lorena Graves Urea nitrogen [Mass/Vol] 11.0 mg/dL Normal 7.0-18.0 [facility] Comment on above: Performed By: #### B MP #### [facility] [address] [address] [address] Lorena Graves Urea nitrogen/Creatinine [Mass ratio] 19.6 mg/mg Normal [facility] Comment on above: Performed By: #### B MP #### [facility] [address] [place] [address] Dr. Lorena Graves VITAMIN B1 (THIAMINE)on 01-05 Vit. B1, Whole Blood 155.3 nmol/L Normal 66.5-200.0 [facility] Comment on above: Performed By: #### M G, CMP, PHOS #### [facility] [address] [place] [address] Dr. Lorena Graves CBC AUTO DIFFon 01-12-2022 BASO # 0.0 103/ul Normal 0.0-0.1 [facility] Comment on above: Performed By: #### M G CMP, PHOS #### [facility] [address] [place] [address] Dr. Lorena Graves Basophils/100 WBC (Bld) 0.3 % Normal 0.2-2.0 [facility] Comment on above: Performed By: #### M G, CMP, PHOS #### [facility] [address] [place] [address] Dr. Lorena Graves EO # 0.1 103/ul Normal 0.0-0.7 [facility] Comment on above: Performed By: #### M G CMP, PHOS #### [facility] [address] [place] [address] Dr. Lorena Graves Eosinophils/100 WBC (Bld) 1.5 % Normal 0.9-7.0 [facility] Comment on above: Performed By: #### M G, CMP, PHOS #### [facility] [address] [place] [address] Dr. Lorena Graves Erythrocyte distribution width (RBC) [Ratio] 14.5 % Normal 11.0-15.0 [facility] Comment on above: Performed By: #### M G, CMP, PHOS #### [facility] [address] [place] [address] Dr. Lorena Graves Hematocrit (Bld) [Volume fraction] 39.9 % Normal 36.0-48.0 [facility] Comment on above: Performed By: #### M G, CMP, PHOS #### [facility] [address] [address] [address] Lorena Graves Hemoglobin (Bld) [Mass/Vol] 13.2 g/dL Normal 12.0-16.0 [facility] Comment on above: Performed By: #### M G, CMP, PHOS #### [facility] [address] [address] [address] Lorena Graves IG # 0.02 10e3/ul Normal 0.00-0.03 [facility] Comment on above: Performed By: #### M G, CMP, PHOS #### [facility] [address] [address] [address] Lorena Graves IG % 0.3 % Normal 0.0-0.5 [facility] Comment on above: Performed By: #### M G, CMP, PHOS #### [facility] [address] [place] [address] Dr. Lorena Graves LYMPH # 2.1 103/ul Normal 1.2-3.8 [facility] Comment on above: Performed By: #### M G, CMP, PHOS #### [facility] [address] [address] [address] Lorena Graves Lymphocytes/100 WBC (Bld) 28.4 % Normal 20.5-60.0 [facility] Comment on above: Performed By: #### M G, CMP, PHOS #### [facility] [address] [address] [address] Lorena Graves MANUAL DIFF REQ NO Normal [facility] Comment on above: Performed By: #### M G, CMP, PHOS #### [facility] [address] [address] [address] Lorena Graves MCH (RBC) [Entitic mass] 30.1 pg Normal 26.7-34.0 [facility] Comment on above: Performed By: #### M G, CMP, PHOS #### [facility] [address] [place] [address] Dr. Lorena Graves MCHC (RBC) [Mass/Vol] 33.1 g/dL Normal 29.9-35.2 [facility] Comment on above: Performed By: #### M G, CMP, PHOS #### [facility] [address] [place] [address] Dr. Lorena Graves MCV (RBC) [Entitic vol] 91.1 fL Normal 81.0-99.0 [facility] Comment on above: Performed By: #### M G, CMP, PHOS #### [facility] [address] [place] [address] Dr. Lorena Graves MONO # 0.5 103/ul Normal 0.3-0.8 [facility] Comment on above: Performed By: #### M G, CMP, PHOS #### [facility] [address] [place] [address] Dr. Lorena Graves Monocytes/100 WBC (Bld) 6.2 % Normal 1.7-12.0 [facility] Comment on above: Performed By: #### M G, CMP, PHOS #### [facility] [address] [place] [address] Dr. Lorena Graves NEUT # 4.7 103/ul Normal 1.4-6.5 [facility] Comment on above: Performed By: #### M G, CMP, PHOS #### [facility] [address] [place] [address] Dr. Lorena Graves Neutrophils/100 WBC (Bld) 63.3 % Normal 43.0-75.0 [facility] Comment on above: Performed By: #### M G, CMP, PHOS #### [facility] [address] [place] [address] Dr. Lorena Graves Platelet mean volume (Bld) [Entitic vol] 10.5 fL Normal 9.5-13.5 [facility] Comment on above: Performed By: #### M G, CMP, PHOS #### [facility] [address] [place] [address] Dr. Lorena Graves PLT 208 103/ul Normal 150-450 [facility] Comment on above: Performed By: #### M G, CMP, PHOS #### [facility] [address] [address] [address] Lorena Graves RBC 4.38 106/ul Normal 4.20-5.40 [facility] Comment on above: Performed By: #### M G, CMP, PHOS #### [facility] [address] [place] [address] Dr. Lorena Graves WBC 7.4 103/ul Normal 4.0-11.0 [facility] Comment on above: Performed By: #### M Juan, CMP, PHOS #### [facility] [address] [place] [address] Dr. Lorena Graves FERRITINon 01-12-2022 Ferritin [Mass/Vol] ng/mL Critically low 8.0-252.0 [facility] Comment on above: Performed By: #### V ITAD, B12FOL, IRON, FERR #### [facility] [address] [place] [address] Dr. Lorena Graves IRONon 01-12-2022 Iron [Mass/Vol] 62.0 ug/dL Normal 50.0-170.0 [facility] Comment on above: Performed By: #### V ITAD, B12FOL, IRON, FERR #### [facility] [address] [place] [address] Dr. Lorena Graves MAGNESIUMon 01-12-2022 Magnesium [Mass/Vol] 2.2 mg/dL Normal 1.8-2.4 [facility] Comment on above: Performed By: #### M Juan, CMP, PHOS #### [facility] [address] [place] [address] Dr. Lorena Graves PHOSPHORUSon 01-12-2022 Phosphate [Mass/Vol] 4.3 mg/dL Normal 2.6-4.7 [facility] Comment on above: Performed By: #### M G, CMP, PHOS #### [facility] [address] [place] [address] Dr. Lorena Graves PROF 14(COMP METB)on Albumin [Mass/Vol] 4.0 g/dL Normal 3.4-5.0 [facility] Comment on above: Performed By: #### M G, CMP, PHOS #### [facility] [address] [address] [address] Lorena Graves Albumin/Globulin [Mass ratio] 1.2 {ratio} Normal [facility] Comment on above: Performed By: #### M G, CMP, PHOS #### [facility] [address] [id number] Dr. Lorena Graves ALP [Catalytic activity/Vol] 144 U/L Critically high 46-116 [facility] Comment on above: Performed By: #### M G, CMP, PHOS #### [facility] [address] [address] [address] Lorena Graves ALT [Catalytic activity/Vol] 34 U/L Normal 14-59 [facility] Comment on above: Performed By: #### M G, CMP, PHOS #### [facility] [address] [address] [address] Lorena Graves Anion gap [Moles/Vol] 9.2 mmol/L Normal [facility] Comment on above: Performed By: #### M G, CMP, PHOS #### [facility] [address] [address] [address] Lorena Graves AST [Catalytic activity/Vol] 28 U/L Normal 15-37 [facility] Comment on above: Performed By: #### M G, CMP, PHOS #### [facility] [address] [address] [address] Lorena Graves Bilirubin [Mass/Vol] 0.5 mg/dL Normal 0.2-1.0 [facility] Comment on above: Performed By: #### M G, CMP, PHOS #### [facility] [address] [address] [address] Lorena Graves Calcium [Mass/Vol] 8.9 mg/dL Normal 8.5-10.1 [facility] Comment on above: Performed By: #### M G, CMP, PHOS #### [facility] [address] [address] [address] Lorena Graves Chloride [Moles/Vol] 103 mmol/L Normal 98-107 [facility] Comment on above: Performed By: #### M G, CMP, PHOS #### [facility] [address] [address] [address] Lorena Graves CO2 [Moles/Vol] 28.6 mmol/L Normal 21.0-32.0 [facility] Comment on above: Performed By: #### M G, CMP, PHOS #### [facility] [address] [address] [address] Lorena Graves Creatinine [Mass/Vol] 0.75 mg/dL Normal 0.55-1.02 [facility] Comment on above: Performed By: #### M G, CMP, PHOS #### [facility] [address] [place] [address] Dr. Loerna Graves EGFR-AF HUNGARIAN >60 Normal >=60 [facility] Comment on above: Performed By: #### M G, CMP, PHOS #### [facility] [address] [place] [address] Dr. Lorena Graves EGFR-NON AF HUNGARIAN >60 Normal >=60 [facility] Comment on above: Performed By: #### M Juan, CMP, PHOS #### [facility] [address] [place] [address] Dr. Lorena Graves Globulin (S) [Mass/Vol] 3.3 g/dL Normal [facility] Comment on above: Performed By: #### M G, CMP, PHOS #### [facility] [address] [address] [address] Lorena Graves Glucose [Mass/Vol] 101 mg/dL Normal 74-106 [facility] Comment on above: Performed By: #### M G, CMP, PHOS #### [facility] [address] [place] [address] Dr. Lorena Graves Potassium [Moles/Vol] 3.8 mmol/L Normal 3.5-5.1 [facility] Comment on above: Performed By: #### M G, CMP, PHOS #### [facility] [address] [place] [address] Dr. Lorena Graves Protein [Mass/Vol] 7.3 g/dL Normal 6.4-8.2 [facility] Comment on above: Performed By: #### M GABRIEL Martinez, PHOS #### [facility] [address] [place] [address] Dr. Lorena Graves Sodium [Moles/Vol] 137 mmol/L Normal 136-145 [facility] Comment on above: Performed By: #### Bibi Martinez CMP, PHOS #### [facility] [address] [place] [address] Dr. Lorena Graves Urea nitrogen [Mass/Vol] 16.0 mg/dL Normal 7.0-18.0 [facility] Comment on above: Performed By: #### Bibi Martinez CMP, PHOS #### [facility] [address] [place] [address] Dr. Lorena Graves Urea nitrogen/Creatinine [Mass ratio] 21.3 mg/mg Normal [facility] Comment on above: Performed By: #### Bibi Martinez CMP, PHOS #### [facility] [address] [place] [address] Dr. Lorena Graves VIT B12 AND FOLATEon 022 Cobalamin (Vitamin B12) [Mass/Vol] 422.0 pg/mL Normal 193.0-986.0 [facility] Comment on above: Performed By: #### V ITAD, B12FOL, IRON, FERR #### [facility] [address] [place] [address] Dr. Lorena Graves FOLATE 18.20 ng/mL Normal 8.60-58.90 [facility] Comment on above: Performed By: #### V ITAD, B12FOL, IRON, FERR #### [facility] [address] [place] [address] Dr. Lorena Graves VITAMIN D 25 OHon 01-12-2022 VIT D 25-OH 36.1 ng/mL Normal [facility] Comment on above: Performed By: #### V ITAD, B12FOL, IRON, FERR #### [facility] [address] [place] [address] Dr. Lorena Graves VIT D RANGES SEE BELOW Normal [facility] Comment on above: Result Comment: <20 ng/mL Vit D deficient 20 - <30 ng/mL Vit D insufficient 30 - 100 ng/mL Vit D sufficient >100 ng/mL Potential Toxicity Performed By: #### V ITAD, B12FOL, IRON, FERR #### [facility] [address] [address] [address] Lorena Graves VITAMIN B1 (THIAMINE)on 09-06 Vit. B1, Whole Blood 168.0 nmol/L Normal 66.5-200.0 [facility] Comment on above: Performed By: #### M G, CMP, PHOS #### [facility] [address] [address] [address] Lorena Graves VIT D 25-OH LABCORPon 2021 Vitamin D, 25-Hydroxy 62.3 ng/mL Normal 30.0-100.0 [facility] Comment on above: Result Comment: Tricia min D deficiency has been defined by the [place] [employer] and an Endocrine Society practice guideline as a level of serum 25-OH vitamin D less than 20 ng/mL (1,2). The Endocrine Society went on to further define vitamin D insufficiency as a level between 21 and 29 ng/mL (2). 1. IOM ([place] [employer]). 2010. Dietary reference intakes for calcium and D. [place]: The National Academies Press. 2. Debra MF, Mook [place], Javier KENNY, et al. Evaluation, treatment, and prevention of vitamin D deficiency: an Endocrine Society clinical practice guideline. JCEM. 2010; 96(7):1911-30. Performed By: #### M G, CMP, PHOS #### [facility] [address] [address] [address] Lorena Graves CBC AUTO DIFFon 09-22-2021 BASO # 0.0 103/ul Normal 0.0-0.1 [facility] Comment on above: Performed By: #### M G, CMP, PHOS #### [facility] [address] [address] [address] Lorena Graves Basophils/100 WBC (Bld) 0.4 % Normal 0.2-2.0 [facility] Comment on above: Performed By: #### M G, CMP, PHOS #### [facility] [address] [place] [address] Dr. Lorena Graves EO # 0.2 103/ul Normal 0.0-0.7 [facility] Comment on above: Performed By: #### M G CMP, PHOS #### [facility] [address] [place] [address] Dr. Lorena Graves Eosinophils/100 WBC (Bld) 2.2 % Normal 0.9-7.0 [facility] Comment on above: Performed By: #### M Juan CMP, PHOS #### [facility] [address] [place] [address] Dr. Lorena Graves Erythrocyte distribution width (RBC) [Ratio] 12.9 % Normal 11.0-15.0 [facility] Comment on above: Performed By: #### M Juan CMP, PHOS #### [facility] [address] [place] [address] Dr. Lorena Graves Hematocrit (Bld) [Volume fraction] 40.6 % Normal 36.0-48.0 [facility] Comment on above: Performed By: #### M Juan CMP, PHOS #### [facility] [address] [place] [address] Dr. Lorena Graves Hemoglobin (Bld) [Mass/Vol] 13.2 g/dL Normal 12.0-16.0 [facility] Comment on above: Performed By: #### M G, CMP, PHOS #### [facility] [address] [place] [address] Dr. Lorena Graves IG # 0.01 10e3/ul Normal 0.00-0.03 [facility] Comment on above: Performed By: #### M G CMP, PHOS #### [facility] [address] [place] [address] Dr. Lorena Graves IG % 0.1 % Normal 0.0-0.5 [facility] Comment on above: Performed By: #### M G, CMP, PHOS #### [facility] [address] [address] [address] Lorena Graves LYMPH # 2.1 103/ul Normal 1.2-3.8 [facility] Comment on above: Performed By: #### M G, CMP, PHOS #### [facility] [address] [address] [address] Lorena Graves Lymphocytes/100 WBC (Bld) 28.5 % Normal 20.5-60.0 [facility] Comment on above: Performed By: #### M G, CMP, PHOS #### [facility] [address] [place] [address] Dr. Lorena Graves MANUAL DIFF REQ NO Normal [facility] Comment on above: Performed By: #### M G, CMP, PHOS #### [facility] [address] [place] [address] Dr. Lorena Graves MCH (RBC) [Entitic mass] 29.8 pg Normal 26.7-34.0 [facility] Comment on above: Performed By: #### M G, CMP, PHOS #### [facility] [address] [place] [address] Dr. Lorena Graves MCHC (RBC) [Mass/Vol] 32.5 g/dL Normal 29.9-35.2 [facility] Comment on above: Performed By: #### M G, CMP, PHOS #### [facility] [address] [place] [address] Dr. Lorena Graves MCV (RBC) [Entitic vol] 91.6 fL Normal 81.0-99.0 [facility] Comment on above: Performed By: #### M G, CMP, PHOS #### [facility] [address] [address] [address] Lorena Graves MONO # 0.4 103/ul Normal 0.3-0.8 [facility] Comment on above: Performed By: #### M G, CMP, PHOS #### [facility] [address] [address] [address] Lorena Graves Monocytes/100 WBC (Bld) 6.1 % Normal 1.7-12.0 [facility] Comment on above: Performed By: #### M G, CMP, PHOS #### [facility] [address] [place] [address] Dr. Lorena Graves NEUT # 4.5 103/ul Normal 1.4-6.5 [facility] Comment on above: Performed By: #### M G, CMP, PHOS #### [facility] [address] [place] [address] Dr. Lorena Graves Neutrophils/100 WBC (Bld) 62.7 % Normal 43.0-75.0 [facility] Comment on above: Performed By: #### M Juan CMP, PHOS #### [facility] [address] [place] [address] Dr. Lorena Graves Platelet mean volume (Bld) [Entitic vol] 10.9 fL Normal 9.5-13.5 [facility] Comment on above: Performed By: #### Bibi G CMP, PHOS #### [facility] [address] [place] [address] Dr. Lorena Graves PLT 220 103/ul Normal 150-450 [facility] Comment on above: Performed By: #### Bibi Martinez CMP, PHOS #### [facility] [address] [place] [address] Dr. Lorena Graves RBC 4.43 106/ul Normal 4.20-5.40 [facility] Comment on above: Performed By: #### M Juan CMP, PHOS #### [facility] [address] [place] [address] Dr. Lorena Graves WBC 7.2 103/ul Normal 4.0-11.0 [facility] Comment on above: Performed By: #### M G, CMP, PHOS #### [facility] [address] [place] [address] Dr. Lorena Graves FERRITINon 09-22-2021 Ferritin [Mass/Vol] 22.0 ng/mL Normal 8.0-252.0 [facility] Comment on above: Performed By: #### M G, CMP, PHOS #### [facility] [address] [address] [address] Lorena Graves IRON AND TIBCon 09-22-2021 % SATURATION 13.6 % Normal [facility] Comment on above: Performed By: #### M Juan, CMP, PHOS #### [facility] [address] [place] [address] Dr. Lorena Graevs Iron [Mass/Vol] 60.0 ug/dL Normal 50.0-170.[address] [facility] Comment on above: Performed By: #### M G, CMP, PHOS #### [facility] [address] [address] [address] Lorena Graves TIBC DIRECT 440.0 ug/dL Normal 250.0-450.[address] [facility] Comment on above: Performed By: #### M Juan, CMP, PHOS #### [facility] [address] [place] [address] Dr. Lorena Graves MAGNESIUMon 09-22-2021 Magnesium [Mass/Vol] 2.1 mg/dL Normal 1.8-2.4 [facility] Comment on above: Performed By: #### M Juan CMP, PHOS #### [facility] [address] [place] [address] Dr. Lorena Graves PHOSPHORUSon 09-22-2021 Phosphate [Mass/Vol] 5.0 mg/dL Critically high 2.6-4.7 [facility] Comment on above: Performed By: #### M Juan, CMP, PHOS #### [facility] [address] [place] [address] Dr. Lorena Graves PROF 14(COMP METB)on 022 Albumin [Mass/Vol] 4.2 g/dL Normal 3.4-5.0 [facility] Comment on above: Performed By: #### M G, CMP, PHOS #### [facility] [address] [place] [address] Dr. Lorena Graves Albumin/Globulin [Mass ratio] 1.2 {ratio} Normal [facility] Comment on above: Performed By: #### M G, CMP, PHOS #### [facility] [address] [address] [address] Lorena Graves ALP [Catalytic activity/Vol] 121 U/L Critically high 46-116 [facility] Comment on above: Performed By: #### M G, CMP, PHOS #### [facility] [address] [address] [address] Lorena Graves ALT [Catalytic activity/Vol] 46 U/L Normal 14-59 [facility] Comment on above: Performed By: #### M G, CMP, PHOS #### [facility] [address] [address] [address] Lorena Graves Anion gap [Moles/Vol] 12.4 mmol/L Normal [facility] Comment on above: Performed By: #### M G, CMP, PHOS #### [facility] [address] [address] [address] Lorena Graves AST [Catalytic activity/Vol] 29 U/L Normal 15-37 [facility] Comment on above: Performed By: #### M G, CMP, PHOS #### [facility] [address] [address] [address] Lorena Graves Bilirubin [Mass/Vol] 0.5 mg/dL Normal 0.2-1.0 [facility] Comment on above: Performed By: #### M G, CMP, PHOS #### [facility] [address] [address] [address] Lorena Graves Calcium [Mass/Vol] 9.1 mg/dL Normal 8.5-10.1 [facility] Comment on above: Performed By: #### M G, CMP, PHOS #### [facility] [address] [address] [address] Lorena Graves Chloride [Moles/Vol] 103 mmol/L Normal 98-107 [facility] Comment on above: Performed By: #### M G, CMP, PHOS #### [facility] [address] [address] [address] Lorena Graves CO2 [Moles/Vol] 26.2 mmol/L Normal 21.0-32.0 [facility] Comment on above: Performed By: #### M G, CMP, PHOS #### [facility] [address] [address] [address] Lorena Graves Creatinine [Mass/Vol] 0.57 mg/dL Normal 0.55-1.02 [facility] Comment on above: Performed By: #### M G, CMP, PHOS #### [facility] [address] [address] [address] Lorena Graves EGFR-AF HUNGARIAN >60 Normal >=60 [facility] Comment on above: Performed By: #### M G, CMP, PHOS #### [facility] [address] [address] [address] Lorena Graves EGFR-NON AF HUNGARIAN >60 Normal >=60 [facility] Comment on above: Performed By: #### M G, CMP, PHOS #### [facility] [address] [address] [address] Lorena Graves Globulin (S) [Mass/Vol] 3.4 g/dL Normal [facility] Comment on above: Performed By: #### M G, CMP, PHOS #### [facility] [address] [address] [address] Lorena Graves Glucose [Mass/Vol] 110 mg/dL Critically high 74-106 [facility] Comment on above: Performed By: #### M G, CMP, PHOS #### [facility] [address] [address] [address] Lorena Graves Potassium [Moles/Vol] 3.6 mmol/L Normal 3.5-5.1 [facility] Comment on above: Performed By: #### M G, CMP, PHOS #### [facility] [address] [address] [address] Lorena Graves Protein [Mass/Vol] 7.6 g/dL Normal 6.4-8.2 [facility] Comment on above: Performed By: #### M G, CMP, PHOS #### [facility] [address] [address] [address] Lorena Graves Sodium [Moles/Vol] 138 mmol/L Normal 136-145 [facility] Comment on above: Performed By: #### Bibi Martinez CMP, PHOS #### [facility] [address] [place] [address] Dr. Lorena Graves Urea nitrogen [Mass/Vol] 14.0 mg/dL Normal 7.0-18.0 [facility] Comment on above: Performed By: #### Bibi Martinez CMP, PHOS #### [facility] [address] [place] [address] Dr. Lorena Graves Urea nitrogen/Creatinine [Mass ratio] 24.6 mg/mg Normal [facility] Comment on above: Performed By: #### Bibi Maritnez CMP, PHOS #### [facility] [address] [place] [address] Dr. Lorena Graves VIT B12 AND FOLATEon 022 Cobalamin (Vitamin B12) [Mass/Vol] 494.0 pg/mL Normal 193.0-986.0 [facility] Comment on above: Performed By: #### Bibi Martinez CMP, PHOS #### [facility] [address] [place] [address] Dr. Lorena Graves FOLATE 16.20 ng/mL Normal 8.60-58.90 [facility] Comment on above: Performed By: #### Bibi Martinez CMP, PHOS #### [facility] [address] [place] [address] Dr. Lorena Graves HELICOBACTER PYLORI AG STOOL on 05-12-2021 H. pylori Stool Ag, EIA Negative Normal Negative [facility] Comment on above: Performed By: #### Bibi Martinez CMP, PHOS #### [facility] [address] [place] [address] Dr. Lorena Graves GLYCOHEMOGLOBIN A1Con 2021 ADA RECOMMENDATION ADA THERAPEUTIC TARG ET 6.0 - 7.0 ACTION SUGGESTED > 7.0 Normal [facility] Comment on above: Performed By: #### Bibi Martinez CMP, PHOS #### [facility] [address] [place] [address] Dr. Lorena Graves Glucose [Mass/Vol] 140 mg/dL Normal [facility] Comment on above: Performed By: #### M G, CMP, PHOS #### [facility] [address] [place], [place] [address] Dr. Lorena Graves HbA1c (Bld) [Mass fraction] 6.5 % Critically high <=6.0 [facility] Comment on above: Performed By: #### M G, CMP, PHOS #### [facility] [address] [place], [place] [address] Dr. Lorena Graves HISTORY PHYSICALon 7 HISTORY PHYSICAL HNO ID: [id number]: Michell PatelMichaelervice: (none)Author Type: (none)Type: HANDPFiled: 12/05/2016 4:40 PMNote Text:COSMETIC SURGERY JERRY AGUILAR DO FACOSFOLLOW-UPName: Merrick LockwoodN: [id number] HPI AND PERTINENT ROS:46-year-old female presents in consultation for bilateral breastreduction. He has hypertension controlled on medication and is on Protonixthat relieves her digestion ssues..PHYSICAL EXAM:GEN: Alert, oriented, NADLUNGS: Unlabored breathingPERTINENT: patient is 5 foot 10 240 pounds with extremely large breasts.She has a long distance from her sternal notch to wally. Nipple areoalacomplex. She has neck and back And uses daily ice ibuprofen and otherNSAIDS TO CONTROL PAIN> All of this interferes with activities of dailyliving and exercise. She needs a minimal of 500 g per side removedASSESSMENT and PLAN of CARE:Dr. Aguilar agreed with my assessment And together we discussed risksand complications alternatives and benefits for bilateral reductionInsurance letter and photos today.she is aware she must provide amammogram report must go with insurance Michell PatelLizOctober [address] [facility] PROGRESSon 12-05-2016 PROGRESS HNO ID: [id number]: Osvaldo AguilarSerluciane: (none)Author Type: PhysicianType: Progress NotesFiled: 12/05/2016 4:40 PMNote Text:COSMETIC SURGERY JERRY AGUILAR DO FACOSName: Merrick LockwoodN: [id number] see her today in consultation for bilateral mammary hyperplasia. Thepresent time she wears a 40 double F bra. Her bra straps cut into hershoulders. She has to see a chiropractor. She takes ibuprofen and Aleveat least 3-4 times per week for active neck pain. She also gets rashesunderneath her breasts for which she uses topical treatment. She is anexcellent Candidate for bilateral reduction mammoplasty. She would like renetta in the C?D cup range. I will send a letter to her insurance companytoday.I have today, in the presence of my nurse, discussed with the patient theprocedure of breast reduction. We have talked about the nature ofincisions and subsequent scars. I have shown the patient pictures ofpeople who have had similar procedures including the types of scars andwhere they occur. People vary according to the nature of the scar thatthey form. Some people form thicker, hypertrophic or keloid scars, butthis is beyond the control of the patient or me. If the scars are toothick, we have talked about intervention in order to attempt to make thesesmoother and softer. The operation was discussed in detail including thetime of the operating taking 3 to 3 1/2 hrs. and the recuperation being 2to 2 1/2 weeks. Potential risks and possible complications were discussed. The most serious complication is partial or complete skin loss of thenipple/areola complex or inverted ?T? incision area of the breast. Thisis more common in diabetic patients and smokers, who share the problem ofdiminished circulation. If this were to occur, the patient would requirefurther reconstruction. Bleeding or hematoma formation requiring drainagemay occur and the patient may have drains post operatively. Infection israre and all my patients receive antibiotics. Decreased nipple or skinsensation can occur but usually returns to normal in about 3 to 6 months,but can be permanent. Areas of firmness or fat necrosis may require biopsyor excision. Asymmetry is usually present before surgery and may be thereafterwards. Depending on the size of the breasts, the patient may requirea free nipple graft. The ability to breast-feed depends upon whether theprocedure is done on a pedicle or free nipple graft technique and we havediscussed these techniques in detail. Free nipple grafts can result inscarring irregularity as well as pigment loss. Anesthesia risks includeMI, pulmonary emboli (blood clots), or even . We discussed the natureof the operation, realistic expectations, potential risks, and possiblecomplications. The patient reviewed the photographs of people who hadsimilar procedures. I would be very happy to introduce the patient topeople who have had similar such procedures. The patient was invited toreturn or call with any further questions before making a decision forsurgery. IT HAS BEEN EXPLAINED IN DETAIL NOT TO TAKE ASPIRIN,ASPIRIN-CONTAI CLIFF PRODUCTS AND VITAMIN E FOR TWO TO THREE WEEKS PRIOR TOELECTIVE SURGERY THESE INCREASE THE RISK OF BLEEDING AND HEMATOMAFORMATION. THE PATIENT WAS INFORMED THAT SMOKERS HAVE A GREATER RISK OFSKIN LOSS, SCARRING AND WOUND HEALING COMPLICATIONS. THE PATIENT WAS GIVENNO GUARANTEE OF RESULTS. If we have to return to surgery to correct anyproblems, I have discussed in detail with the patient that if this returnto the O.R. is not covered by insurance, I do not charge the patient,however, there will be a charge for the O.R. and anesthesia, over which Ihave no control. MAF/nn (Dictated, but not read.)Any concerns or questions prior to next appointment, patient is to calloffice or return sooner.Osvaldo Aguilar, DOOctober 2016This note was generated with voice recognition software and may containerrors, including spelling, grammar, syntax and misrecognition of what wasdictated, that are not fully corrected. Normal [facility] Encounters Encounter Date Encounter Type Care Provider Facility Start: 02-13-2022 End: 02-13-[address] MERRY KAY Facility:[facility] Start: 01-12-2022 End: 01-13-2022 ambulatory ROBERTA WINCHESTER Facility:[facility] Start: 09-22-2021 End: 09-23-[address] DOCTOR ORNELAS Facility:[facility] Start: 05-10-2021 End: 05-10-2021 ambulatory ROBERTA WINCHESTER Facility:[facility] Start: 04-07-2021 End: 04-08-[address] MERRY KAY Facility:[facility] Payers Date Payer Category Payer Unknown [id number] 2.16.84 [id number] 1970 Unknown [id number] 2.16.84 [id number] 1970 Unknown [id number] 2.16.84 [id number] 1968 Unknown [id number] 2.16.84 [id number] 1968 Unknown [id number] Unknown [id number] Summary Purpose Family History No Family History Records FoundNo Family History Records Found Advance Directives No Advanced Directives Records FoundNo Advanced Directives Records Found Additional Source Comments INFORMATION SOURCE (unrecogn ized section and content) DATE CREATED AUTHOR 07/31/2017 [facility] DATE CREATED AUTHOR 'S RAH LEAL 02/15/2022 [facility] FOR RECORDS PERTAINING TO PATIENTS WHO ARE OR HAVE BEEN ENROLLED IN A CHEMICAL DEPENDENCY/SUBSTANCEABUSE PROGRAM, SOME INFORMATION MAY BE OMITTED. This clinical summary was aggregated from multiple sources. Caution should be exercised in using it in the provision of clinical care. This summary normalizes information from multiple sources, and as a consequence, information in this document may materially change the coding, format and clinical context of patient data. In addition, data may be omitted in some cases. CLINICAL DECISIONS SHOULD BE BASED ON THE PRIMARY CLINICAL RECORDS. [facility] [employer] provides no warranty or guarantee of the accuracy or completeness of information in this document.
[2024-07-11 10:06] LABS: Basophils Percent Auto 0.4 % (0.2-2.0); Eosinophils Absolute Auto 0.1 10^3/uL (0.0-0.7); Eosinophils Percent Auto 1.7 % (0.9-7.0); Hematocrit 40.5 % (36.0-48.0); Immature Granulocytes Abs Auto 0.01 10^3/uL (0.00-0.03); Immature Granulocytes Pct Auto 0.2 % (0.0-0.5); Lymphocytes Absolute Auto 1.6 10^3/uL (1.2-3.8); Lymphocytes Percent Auto 28.9 % (20.5-60.0); Mean Corpuscular HGB Conc 32.1 g/dL (29.9-35.2); Mean Corpuscular Hemoglobin 30.2 pg (26.7-34.0); Mean Corpuscular Volume 94.2 fL (81.0-99.0); Mean Platelet Volume 10.8 fL (9.5-13.5); Monocytes Absolute Auto 0.5 10^3/uL (0.3-0.8); Monocytes Percent Auto 8.3 % (1.7-12.0); Neutrophils Absolute Auto 3.3 10^3/uL (1.4-6.5); Neutrophils Percent Auto 60.5 % (43.0-75.0); Platelet Count 203 10^3/uL (150-450); Red Cell Distribution Width 13.5 % (11.0-15.0); White Blood Count 5.4 10^3/uL (4.0-11.0)
[2024-07-11 10:49] LABS: Alanine Aminotransferase 64 U/L (14-59); Albumin Level 3.9 g/dL (3.4-5.0); Alkaline Phosphatase 184 U/L (46-116); Anion Gap 12.7; Aspartate Amino Transferase 41 U/L (15-37); BUN Creatinine Ratio 30.6; Bilirubin Total 0.5 mg/dL (0.2-1.0); Calcium 9.2 mg/dL (8.5-10.1); Carbon Dioxide 28.3 mmol/L (21.0-32.0); Chloride 101 mmol/L (98-107); Estimated GFR (African America >60 (>=60 mL/min/1.73m^2); Estimated GFR (Non-African Ame >60 (>=60 mL/min/1.73m^2); Globulin 3.3 g/dL; Glucose 99 mg/dL (74-106); Phosphorus 4.3 mg/dL (2.6-4.7); Sodium 138 mmol/L (136-145); Total Protein 7.2 g/dL (6.4-8.2)
[2024-07-11 10:50] LABS: Albumin Globulin Ratio 1.2
[2024-07-11 11:43] LABS: Percent Iron Saturation 13.6 %
[2024-07-12 04:07] LABS: Vitamin B12 423 pg/mL (232-1245)
== END 2024-07-11 09:15 | disposition home or self-care (01) ==
PROVIDERS: PCP Family Medicine; Visit Provider Nurse Practitioner Family
DX: K90.9 Intestinal malabsorption, unspecified (principal); Z98.84 Bariatric surgery status; I10 Essential (primary) hypertension; E11.9 Type 2 diabetes mellitus without complications; M19.90 Unspecified osteoarthritis, unspecified site; R60.9 Edema, unspecified; K21.00 Gastro-esophageal reflux disease with esophagitis, without bleeding
CPT/HCPCS: 36415; 80053; 82306; 82607; 82728; 82746; 83540; 83550; 83735; 84100; 84425; 85025

== ENCOUNTER 2024-10-22 12:02 | Outpatient (REF) | payer OTHER, SELFPAY ==
--- OUTSIDE RECORDS SUMMARY | 2024-10-22 12:14 | XMS_ITS | CCD ---
Author Organization [facility] Inform ion [facility] Care Team Providers Care Batt Packer Name Role Phone HOUSE, DR SOUSA Admitting Unavailable HOUSE, DR SOUSA Attending Unavailable HOUSE, DR SOUSA Primary Care Unavailable HOUSE, DR SOUSA Consulting Unavailable HOUSE, DR SOUSA Primary Care Unavailable KATKO, ENRRIQUE Barahona Admitting Unavailable KATKO, ENRRIQUE Barahona Attending Unavailable MARKER, DR CHOI Consulting Unavailable KATKO, ENRRIQUE Barahona Consulting Unavailable CHAKY, ASHLEE Consulting Unavailable LALOR, ROBERTA Admitting Unavailable LALOR, ROBERTA Attending Unavailable HOUSE, DR SOUSA Primary Care Unavailable LALOR, ROBERTA Consulting Unavailable MISC, DR BARRIOS Admitting Unavailable MISC, DR BARRIOS Attending Unavailable HOUSE, DR SOUSA Primary Care Unavailable MISC, DR BARRIOS Consulting Unavailable LALOR, ROBERTA Admitting Unavailable LALOR, ROBERTA Attending Unavailable HOUSE, DR SOUSA Primary Care Unavailable LALOR, ROBERTA Consulting Unavailable Unavailable Primary Care Provider Unavailabl e Problems Problem Classification Problem Date Documented Da [...] 02-13-2022 BASO # 0.0 103/ul Normal 0.0-0.1 [facility] Comment on above: Performed By: #### M G, CMP, PHOS #### [facility] [address] [address] [address] Lorena Graves Basophils/100 WBC (Bld) 0.4 % Normal 0.2-2.0 [facility] Comment on above: Performed By: #### M G, CMP, PHOS #### [facility] [address] [address] [address] Lorena Graves EO # 0.1 103/ul Normal 0.0-0.7 [facility] Comment on above: Performed By: #### M G, CMP, PHOS #### [facility] [address] [address] [address] Lorena Graves Eosinophils/100 WBC (Bld) 1.1 % Normal 0.9-7.0 [facility] Comment on above: Performed By: #### M G, CMP, PHOS #### [facility] [address] [address] [address] Lorena Graves Erythrocyte distribution width (RBC) [Ratio] 13.3 % Normal 11.0-15.0 [facility] Comment on above: Performed By: #### M G, CMP, PHOS #### [facility] [address] [place] [address] Dr. Lorena Graves Hematocrit (Bld) [Volume fraction] 38.9 % Normal 36.0-48.0 [facility] Comment on above: Performed By: #### M G, CMP, PHOS #### [facility] [address] [place] [address] Dr. Lorena Graves Hemoglobin (Bld) [Mass/Vol] 13.7 g/dL Normal 12.0-16.0 [facility] Comment on above: Performed By: #### M G, CMP, PHOS #### [facility] [address] [place] [address] Dr. Lorena Graves IG # 0.03 10e3/ul Normal 0.00-0.03 [facility] Comment on above: Performed By: #### M G, CMP, PHOS #### [facility] [address] [place] [address] Dr. Lorena Graves IG % 0.4 % Normal 0.0-0.5 [facility] Comment on above: Performed By: #### M G, CMP, PHOS #### [facility] [address] [place] [address] Dr. Lorena Graves LYMPH # 1.9 103/ul Normal 1.2-3.8 [facility] Comment on above: Performed By: #### M G, CMP, PHOS #### [facility] [address] [place] [address] Dr. Lorena Graves Lymphocytes/100 WBC (Bld) 24.2 % Normal 20.5-60.0 [facility] Comment on above: Performed By: #### M G, CMP, PHOS #### [facility] [address] [place] [address] Dr. Lorena Graves MANUAL DIFF REQ NO Normal [facility] Comment on above: Performed By: #### M G, CMP, PHOS #### [facility] [address] [place] [address] Dr. Lorena Graves MCH (RBC) [Entitic mass] 30.2 pg Normal 26.7-34.0 [facility] Comment on above: Performed By: #### M G, CMP, PHOS #### [facility] [address] [place] [address] Dr. Lorena Graves MCHC (RBC) [Mass/Vol] 35.2 g/dL Normal 29.9-35.2 [facility] Comment on above: Performed By: #### M G, CMP, PHOS #### [facility] [address] [place] [address] Dr. Lorena Graves MCV (RBC) [Entitic vol] 85.9 fL Normal 81.0-99.0 [facility] Comment on above: Performed By: #### M G, CMP, PHOS #### [facility] [address] [place] [address] Dr. Lorena Graves MONO # 0.4 103/ul Normal 0.3-0.8 [facility] Comment on above: Performed By: #### M G, CMP, PHOS #### [facility] [address] [place] [address] Dr. Lorena Graves Monocytes/100 WBC (Bld) 5.5 % Normal 1.7-12.0 [facility] Comment on above: Performed By: #### M G, CMP, PHOS #### [facility] [address] [place] [address] Dr. Lorena Graves NEUT # 5.4 103/ul Normal 1.4-6.5 [facility] Comment on above: Performed By: #### M G, CMP, PHOS #### [facility] [address] [place] [address] Dr. Lorena Graves Neutrophils/100 WBC (Bld) 68.4 % Normal 43.0-75.0 [facility] Comment on above: Performed By: #### M G, CMP, PHOS #### [facility] [address] [place] [address] Dr. Lorena Graves Platelet mean volume (Bld) [Entitic vol] 10.7 fL Normal 9.5-13.5 [facility] Comment on above: Performed By: #### M G, CMP, PHOS #### [facility] [address] [address] [address] Lorena Graves PLT 194 103/ul Normal 150-450 [facility] Comment on above: Performed By: #### M G, CMP, PHOS #### [facility] [address] [address] [address] Lorena Graves RBC 4.53 106/ul Normal 4.20-5.40 [facility] Comment on above: Performed By: #### M G, CMP, PHOS #### [facility] [address] [address] [address] oLrena Graves WBC 7.9 103/ul Normal 4.0-11.0 [facility] Comment on above: Performed By: #### M G, CMP, PHOS #### [facility] [address] [address] HEAD WO CONon [...] ASHLEE MASCORRO Date: 2022-02-13 20:52 Normal [facility]19 [facility]on SARS-CoV-2 (COVID-19) RNA TAYLOR+probe Ql (Unsp spec) Not detected Normal NOT DETECTED [facility] Comment on above: Result Comment: When [...] for this test is supported by the Fields of Health and Human Service's declaration that [...] longer be used). Performed By: #### C VDTB #### [facility] [address] [place] [address] Dr. Lorena Graves ER URINE PROFILEon 3 Bilirubin Ql (U) Negative Normal NEGATIVE [facility] Comment on above: Performed By: #### M GABRIEL Martinez, PHOS #### [facility] [address] [place] [address] Dr. Lorena Graves Clarity (U) CLEAR Normal CLEAR [facility] Comment on above: Performed By: #### M GABRIEL Martinez, PHOS #### [facility] [address] [place] [address] Dr. Lorena Graves Color (U) LT. YELLOW Normal YELLOW [facility] Comment on above: Performed By: #### M Juan CMP, PHOS #### [facility] [address] [place] [address] Dr. Lorena Graves ERUAHD A micrscopic examination will be performed if indicated. Normal [facility] Comment on above: Performed By: #### M Juan CMP, PHOS #### [facility] [address] [place] [address] Dr. Lorena Graves Glucose Ql (U) Negative Normal NEGATIVE [facility] Comment on above: Performed By: #### M G CMP, PHOS #### [facility] [address] [place] [address] Dr. Lorena Graves Hemoglobin Ql (U) Negative Normal NEGATIVE [facility] Comment on above: Performed By: #### M G, CMP, PHOS #### [facility] [address] [address] [address] Lorena Graves Ketones Ql (U) 15 mg/dl Abnormal NEGATIVE [facility] Comment on above: Performed By: #### M G, CMP, PHOS #### [facility] [address] [address] [address] Lorena Graves LEUKOCYTES Negative Normal NEGATIVE [facility] Comment on above: Performed By: #### M G, CMP, PHOS #### [facility] [address] [address] [address] Lorena Graves Nitrite Ql (U) Negative Normal NEGATIVE [facility] Comment on above: Performed By: #### M G, CMP, PHOS #### [facility] [address] [place] [address] Dr. Lorena Graves pH (U) 5.5 [pH] Normal 5-9 [facility] Comment on above: Performed By: #### M G, CMP, PHOS #### [facility] [address] [place] [address] Dr. Lorena Graves SPEC GRAVITY 1.025 Normal 1.005-<=1.025 [facility] Comment on above: Performed By: #### M G, CMP, PHOS #### [facility] [address] [place] [address] Dr. Lorena Graves UA PROTEIN Negative Normal NEGATIVE/ TRACE [facility] Comment on above: Performed By: #### M G, CMP, PHOS #### [facility] [address] [address] [address] Lorena Graves UR MICRO IND NOT INDICATED Normal [facility] Comment on above: Performed By: #### M G, CMP, PHOS #### [facility] [address] [place] [address] Dr. Lorena Graves Urobilinogen Qn (U) 0.2 {Magdalene'U}/dL Normal 0.2 - 1. 0 [facility] Comment on above: Performed By: #### M G, CMP, PHOS #### [facility] [address] [place] [address] Dr. Lorena Graves INFLUENZA A AND B AGon 02-13 INFLUANE SEE BELOW Normal [facility] Comment on above: Result Comment: Nega tive for Flu A protein angiten. Infection due to Flu A cannot be ruled out. Flu A angiten in the sample may be below the detection limit of the test. Performed By: #### I NFLUAB #### [facility] [address] [place] [address] Dr. Lorena Graves [facility] BEL[facility] Normal [facility] Comment on above: Result Comment: Nega tive for Flu B protein antigen. Infection due to Flu B cannot be ruled out. Flu B antigen in the sample may be below the detection limit of the test. Performed By: #### I NFLUAB #### [facility] [address] [place] [address] Dr. Lorena Graves INFLUENZA A AG Negative Normal NEGATIVE SEE COMMENT [facility] Comment on above: Performed By: #### I NFLUAB #### [facility] [address] [place] [address] Dr. Lorena Graves INFLUENZA B AG Negative Normal NEGATIVE SEE COMMENT [facility] Comment on above: Performed By: #### I NFLUAB #### [facility] [address] [place] [address] Dr. Lorena Graves PROF CHEM 8 (BAS METB)on Anion gap [Moles/Vol] 12.6 mmol/L Normal [facility] Comment on above: Performed By: #### B MP #### [facility] [address] [place] [address] Dr. Lorena Graves Calcium [Mass/Vol] 9.3 mg/dL Normal 8.5-10.1 [facility] Comment on above: Performed By: #### B MP #### [facility] [address] [place] [address] Dr. Lorena Graves Chloride [Moles/Vol] 104 mmol/L Normal 98-107 [facility] Comment on above: Performed By: #### B MP #### [facility] [address] [address] [address] Lorena Graves CO2 [Moles/Vol] 26.8 mmol/L Normal 21.0-32.0 [facility] Comment on above: Performed By: #### B MP #### [facility] [address] [address] [address] Lorena Graves Creatinine [Mass/Vol] 0.56 mg/dL Normal 0.55-1.02 [facility] Comment on above: Performed By: #### B MP #### [facility] [address] [address] [address] Lorena Graves EGFR-AF CZECH >60 Normal >=60 [facility] Comment on above: Performed By: #### B MP #### [facility] [address] [place] [address] Dr. Lorena Graves EGFR-NON AF CZECH >60 Normal >=60 [facility] Comment on above: Performed By: #### B MP #### [facility] [address] [place] [address] Dr. Lorena Graves Glucose [Mass/Vol] 94 mg/dL Normal 74-106 [facility] Comment on above: Performed By: #### B MP #### [facility] [address] [place] [address] Dr. Lorena Graves Potassium [Moles/Vol] 3.4 mmol/L Critically low 3.5-5.1 [facility] Comment on above: Performed By: #### B MP #### [facility] [address] [place] [address] Dr. Lorena Graves Sodium [Moles/Vol] 140 mmol/L Normal 136-145 [facility] Comment on above: Performed By: #### B MP #### [facility] [address] [address] [address] Lorena Graves Urea nitrogen [Mass/Vol] 11.0 mg/dL Normal 7.0-18.0 [facility] Comment on above: Performed By: #### B MP #### [facility] [address] [address] [address] Lorena Graves Urea nitrogen/Creatinine [Mass ratio] 19.6 mg/mg Normal [facility] Comment on above: Performed By: #### B MP #### [facility] [address] [address] [address] Lorena Graves VITAMIN B1 (THIAMINE)on 01-05 Vit. B1, Whole Blood 155.3 nmol/L Normal 66.5-200.0 [facility] Comment on above: Performed By: #### M G, CMP, PHOS #### [facility] [address] [address] [address] Lorena Graves CBC AUTO DIFFon 01-12-2022 BASO # 0.0 103/ul Normal 0.0-0.1 [facility] Comment on above: Performed By: #### M G, CMP, PHOS #### [facility] [address] [address] [address] Lorena Graves Basophils/100 WBC (Bld) 0.3 % Normal 0.2-2.0 [facility] Comment on above: Performed By: #### M G, CMP, PHOS #### [facility] [address] [address] [address] Lorena Graves EO # 0.1 103/ul Normal 0.0-0.7 [facility] Comment on above: Performed By: #### M G, CMP, PHOS #### [facility] [address] [address] [address] Lorena Graves Eosinophils/100 WBC (Bld) 1.5 % Normal 0.9-7.0 [facility] Comment on above: Performed By: #### M G, CMP, PHOS #### [facility] [address] [address] [address] Lorena Graves Erythrocyte distribution width (RBC) [Ratio] 14.5 % Normal 11.0-15.0 [facility] Comment on above: Performed By: #### M G, CMP, PHOS #### [facility] [address] [address] [address] Lorena Graves Hematocrit (Bld) [Volume fraction] 39.9 % Normal 36.0-48.0 [facility] Comment on above: Performed By: #### M Juan CMP, PHOS #### [facility] [address] [place] [address] Dr. Lorena Graves Hemoglobin (Bld) [Mass/Vol] 13.2 g/dL Normal 12.0-16.0 [facility] Comment on above: Performed By: #### M G, CMP, PHOS #### [facility] [address] [place] [address] Dr. Lorena Graves IG # 0.02 10e3/ul Normal 0.00-0.03 [facility] Comment on above: Performed By: #### M Juan CMP, PHOS #### [facility] [address] [place] [address] Dr. Lorena Graves IG % 0.3 % Normal 0.0-0.5 [facility] Comment on above: Performed By: #### M Juan CMP, PHOS #### [facility] [address] [place] [address] Dr. Lorena Graves LYMPH # 2.1 103/ul Normal 1.2-3.8 [facility] Comment on above: Performed By: #### M Juan CMP, PHOS #### [facility] [address] [place] [address] Dr. oLrena Graves Lymphocytes/100 WBC (Bld) 28.4 % Normal 20.5-60.0 [facility] Comment on above: Performed By: #### M Juan CMP, PHOS #### [facility] [address] [place] [address] Dr. Lorena Graves MANUAL DIFF REQ NO Normal [facility] Comment on above: Performed By: #### M G, CMP, PHOS #### [facility] [address] [place] [address] Dr. Lorena Graves MCH (RBC) [Entitic mass] 30.1 pg Normal 26.7-34.0 [facility] Comment on above: Performed By: #### M G, CMP, PHOS #### [facility] [address] [place] [address] Dr. Lorena Graves MCHC (RBC) [Mass/Vol] 33.1 g/dL Normal 29.9-35.2 [facility] Comment on above: Performed By: #### M G, CMP, PHOS #### [facility] [address] [place] [address] Dr. Lorena Graves MCV (RBC) [Entitic vol] 91.1 fL Normal 81.0-99.0 [facility] Comment on above: Performed By: #### M G, CMP, PHOS #### [facility] [address] [place] [address] Dr. Lorena Graves MONO # 0.5 103/ul Normal 0.3-0.8 [facility] Comment on above: Performed By: #### M G, CMP, PHOS #### [facility] [address] [place] [address] Dr. Lorena Graves Monocytes/100 WBC (Bld) 6.2 % Normal 1.7-12.0 [facility] Comment on above: Performed By: #### M G, CMP, PHOS #### [facility] [address] [place] [address] Dr. Lorena Graves NEUT # 4.7 103/ul Normal 1.4-6.5 [facility] Comment on above: Performed By: #### M G, CMP, PHOS #### [facility] [address] [place] [address] Dr. Lorena Graves Neutrophils/100 WBC (Bld) 63.3 % Normal 43.0-75.0 [facility] Comment on above: Performed By: #### M G, CMP, PHOS #### [facility] [address] [place] [address] Dr. Lorena Graves Platelet mean volume (Bld) [Entitic vol] 10.5 fL Normal 9.5-13.5 [facility] Comment on above: Performed By: #### M G, CMP, PHOS #### [facility] [address] [place] [address] Dr. Lorena Graves PLT 208 103/ul Normal 150-450 [facility] Comment on above: Performed By: #### M G, CMP, PHOS #### [facility] [address] [place] [address] Dr. Lorena Graves RBC 4.38 106/ul Normal 4.20-5.40 [facility] Comment on above: Performed By: #### M G, CMP, PHOS #### [facility] [address] [place] [address] Dr. Lorena Graves WBC 7.4 103/ul Normal 4.0-11.0 [facility] Comment on above: Performed By: #### M G, CMP, PHOS #### [facility] [address] [place] [address] Dr. Lorena Graves FERRITINon 01-12-2022 Ferritin [Mass/Vol] ng/mL Critically low 8.0-252.0 [facility] Comment on above: Performed By: #### V ITAD, B12FOL, IRON, FERR #### [facility] [address] [place] [address] Dr. Lorena Graves IRONon 01-12-2022 Iron [Mass/Vol] 62.0 ug/dL Normal 50.0-170.0 [facility] Comment on above: Performed By: #### V ITAD, B12FOL, IRON, FERR #### [facility] [address] [place] [address] Dr. Lorena Graves MAGNESIUMon 01-12-2022 Magnesium [Mass/Vol] 2.2 mg/dL Normal 1.8-2.4 [facility] Comment on above: Performed By: #### M G, CMP, PHOS #### [facility] [address] [place] [address] Dr. Lorena Graves PHOSPHORUSon 01-12-2022 Phosphate [Mass/Vol] 4.3 mg/dL Normal 2.6-4.7 [facility] Comment on above: Performed By: #### M G, CMP, PHOS #### [facility] [address] [place] [address] Dr. Lorena Graves PROF 14(COMP METB)on 022 Albumin [Mass/Vol] 4.0 g/dL Normal 3.4-5.0 [facility] Comment on above: Performed By: #### M Juan, CMP, PHOS #### [facility] [address] [address] [address] Lorena Graves Albumin/Globulin [Mass ratio] 1.2 {ratio} Normal [facility] Comment on above: Performed By: #### M G, CMP, PHOS #### [facility] [address] [address] [address] Lorena Graves ALP [Catalytic activity/Vol] 144 U/L Critically high 46-116 [facility] Comment on above: Performed By: #### M Juan CMP, PHOS #### [facility] [address] [place] [address] Dr. Lorena Graves ALT [Catalytic activity/Vol] 34 U/L Normal 14-59 [facility] Comment on above: Performed By: #### M Juan CMP, PHOS #### [facility] [address] [address] [address] Lorena Graves Anion gap [Moles/Vol] 9.2 mmol/L Normal [facility] Comment on above: Performed By: #### M Juan CMP, PHOS #### [facility] [address] [place] [address] Dr. Lorena Graves AST [Catalytic activity/Vol] 28 U/L Normal 15-37 [facility] Comment on above: Performed By: #### M Juan CMP, PHOS #### [facility] [address] [address] [address] Lorena Graves Bilirubin [Mass/Vol] 0.5 mg/dL Normal 0.2-1.0 [facility] Comment on above: Performed By: #### M G, CMP, PHOS #### [facility] [address] [address] [address] Lorena Graves Calcium [Mass/Vol] 8.9 mg/dL Normal 8.5-10.1 [facility] Comment on above: Performed By: #### M Juan, CMP, PHOS #### [facility] [address] [address] [address] Lorena Graves Chloride [Moles/Vol] 103 mmol/L Normal 98-107 [facility] Comment on above: Performed By: #### M G, CMP, PHOS #### [facility] [address] [address] [address] Lorena Graves CO2 [Moles/Vol] 28.6 mmol/L Normal 21.0-32.0 [facility] Comment on above: Performed By: #### M G, CMP, PHOS #### [facility] [address] [address] [address] Lorena Graves Creatinine [Mass/Vol] 0.75 mg/dL Normal 0.55-1.02 [facility] Comment on above: Performed By: #### M G, CMP, PHOS #### [facility] [address] [place] [address] Dr. Lorena Graves EGFR-AF CZECH >60 Normal >=60 [facility] Comment on above: Performed By: #### M G, CMP, PHOS #### [facility] [address] [address] [address] Lorena Graves EGFR-NON AF CZECH >60 Normal >=60 [facility] Comment on above: Performed By: #### M G, CMP, PHOS #### [facility] [address] [address] [address] Lorena Graves Globulin (S) [Mass/Vol] 3.3 g/dL Normal [facility] Comment on above: Performed By: #### M G, CMP, PHOS #### [facility] [address] [address] [address] Lorena Graves Glucose [Mass/Vol] 101 mg/dL Normal 74-106 [facility] Comment on above: Performed By: #### M G, CMP, PHOS #### [facility] [address] [address] [address] Lorena Graves Potassium [Moles/Vol] 3.8 mmol/L Normal 3.5-5.1 [facility] Comment on above: Performed By: #### M G, CMP, PHOS #### [facility] [address] [place] [address] Dr. Lorena Graves Protein [Mass/Vol] 7.3 g/dL Normal 6.4-8.2 [facility] Comment on above: Performed By: #### M G, CMP, PHOS #### [facility] [address] [place] [address] Dr. Lorena Garves Sodium [Moles/Vol] 137 mmol/L Normal 136-145 [facility] Comment on above: Performed By: #### M G, CMP, PHOS #### [facility] [address] [place] [address] Dr. Lorena Graves Urea nitrogen [Mass/Vol] 16.0 mg/dL Normal 7.0-18.0 [facility] Comment on above: Performed By: #### M G, CMP, PHOS #### [facility] [address] [place] [address] Dr. Lorena Graves Urea nitrogen/Creatinine [Mass ratio] 21.3 mg/mg Normal [facility] Comment on above: Performed By: #### M G, CMP, PHOS #### [facility] [address] [place] [address] Dr. Lorena Graves VIT B12 AND FOLATEon 022 Cobalamin (Vitamin B12) [Mass/Vol] 422.0 pg/mL Normal 193.0-986.0 [facility] Comment on above: Performed By: #### V ITAD, B12FOL, IRON, FERR #### [facility] [address] [place] [address] Dr. Lorena Graves FOLATE 18.20 ng/mL Normal 8.60-58.90 [facility] Comment on above: Performed By: #### V ITAD, B12FOL, IRON, FERR #### [facility] [address] [place] [address] Dr. Lorena Graves VITAMIN D 25 OHon 01-12-2022 VIT D 25-OH 36.1 ng/mL Normal [facility] Comment on above: Performed By: #### V ITAD, B12FOL, IRON, FERR #### [facility] [address] [address] [address] Lorena Graves VIT D RANGES SEE BELOW Normal [facility] Comment on above: Result Comment: <20 ng/mL Vit D deficient 20 - <30 ng/mL Vit D insufficient 30 - 100 ng/mL Vit D sufficient >100 ng/mL Potential Toxicity Performed By: #### V ITAD, B12FOL, IRON, FERR #### [facility] [address] [address] [address] Lorena Graves VITAMIN B1 (THIAMINE)on 09-06 Vit. B1, Whole Blood 168.0 nmol/L Normal 66.5-200.0 [facility] Comment on above: Performed By: #### iBbi Martinez CMP PHOS #### [facility] [address] [place] [address] Dr. Lorena Graves VIT D 25-OH LABCORPon 2021 Vitamin D, 25-Hydroxy 62.3 ng/mL Normal 30.0-100.0 [facility] Comment on above: Result Comment: Tricia min D deficiency has been defined by the [place] of [employer] and an Endocrine Society practice guideline as a level of serum 25-OH vitamin D less than 20 ng/mL (1,2). The Endocrine Society went on to further define vitamin D insufficiency as a level between 21 and 29 ng/mL (2). 1. IOM ([place] of Medicine). 2010. Dietary reference intakes for calcium and D. [place]: The National Academies Press. 2. Debra GUEVARA, [place], Javier KENNY, et al. Evaluation, treatment, and prevention of vitamin D deficiency: an Endocrine Society clinical practice guideline. JCEM. 2010; 96(7):1911-30. Performed By: #### Bibi Martinez CMP PHOS #### [facility] [address] [place] [address] Dr. Lorena Graves CBC AUTO DIFFon 09-22-2021 BASO # 0.0 103/ul Normal 0.0-0.1 [facility] Comment on above: Performed By: #### Bibi Martinez CMP, PHOS #### [facility] [address] [place] [address] Dr. oLrena Graves Basophils/100 WBC (Bld) 0.4 % Normal 0.2-2.0 [facility] Comment on above: Performed By: #### M G, CMP, PHOS #### [facility] [address] [place] [address] Dr. Lorena Graves EO # 0.2 103/ul Normal 0.0-0.7 [facility] Comment on above: Performed By: #### M G, CMP, PHOS #### [facility] [address] [place] [address] Dr. Lorena Graves Eosinophils/100 WBC (Bld) 2.2 % Normal 0.9-7.0 [facility] Comment on above: Performed By: #### M G, CMP, PHOS #### [facility] [address] [place] [address] Dr. Lorena Graves Erythrocyte distribution width (RBC) [Ratio] 12.9 % Normal 11.0-15.0 [facility] Comment on above: Performed By: #### M G, CMP, PHOS #### [facility] [address] [place] [address] Dr. Lorena Graves Hematocrit (Bld) [Volume fraction] 40.6 % Normal 36.0-48.0 [facility] Comment on above: Performed By: #### M G, CMP, PHOS #### [facility] [address] [place] [address] Dr. Lorena Graves Hemoglobin (Bld) [Mass/Vol] 13.2 g/dL Normal 12.0-16.0 [facility] Comment on above: Performed By: #### M G, CMP, PHOS #### [facility] [address] [place] [address] Dr. Lorena Graves IG # 0.01 10e3/ul Normal 0.00-0.03 [facility] Comment on above: Performed By: #### M G, CMP, PHOS #### [facility] [address] [place] [address] Dr. Lorena Graves IG % 0.1 % Normal 0.0-0.5 [facility] Comment on above: Performed By: #### M G, CMP, PHOS #### [facility] [address] [place] [address] Dr. Lorena Graves LYMPH # 2.1 103/ul Normal 1.2-3.8 [facility] Comment on above: Performed By: #### M G, CMP, PHOS #### [facility] [address] [place] [address] Dr. Lorena Graves Lymphocytes/100 WBC (Bld) 28.5 % Normal 20.5-60.0 [facility] Comment on above: Performed By: #### M G, CMP, PHOS #### [facility] [address] [place] [address] Dr. Lorena Graves MANUAL DIFF REQ NO Normal [facility] Comment on above: Performed By: #### M G, CMP, PHOS #### [facility] [address] [place] [address] Dr. Lorena Graves MCH (RBC) [Entitic mass] 29.8 pg Normal 26.7-34.0 [facility] Comment on above: Performed By: #### M G, CMP, PHOS #### [facility] [address] [place] [address] Dr. Lorena Graves MCHC (RBC) [Mass/Vol] 32.5 g/dL Normal 29.9-35.2 [facility] Comment on above: Performed By: #### M G, CMP, PHOS #### [facility] [address] [place] [address] Dr. Lorena Graves MCV (RBC) [Entitic vol] 91.6 fL Normal 81.0-99.0 [facility] Comment on above: Performed By: #### M G, CMP, PHOS #### [facility] [address] [place] [address] Dr. Lorena Graves MONO # 0.4 103/ul Normal 0.3-0.8 [facility] Comment on above: Performed By: #### M G, CMP, PHOS #### [facility] [address] [address] [address] Lorena Graves Monocytes/100 WBC (Bld) 6.1 % Normal 1.7-12.0 [facility] Comment on above: Performed By: #### M G, CMP, PHOS #### [facility] [address] [address] [address] Lorena Graves NEUT # 4.5 103/ul Normal 1.4-6.5 [facility] Comment on above: Performed By: #### M G, CMP, PHOS #### [facility] [address] [place] [address] Dr. Lorena Graves Neutrophils/100 WBC (Bld) 62.7 % Normal 43.0-75.0 [facility] Comment on above: Performed By: #### M G, CMP, PHOS #### [facility] [address] [place] [address] Dr. Lorena Graves Platelet mean volume (Bld) [Entitic vol] 10.9 fL Normal 9.5-13.5 [facility] Comment on above: Performed By: #### M G, CMP, PHOS #### [facility] [address] [place] [address] Dr. Lorena Graves PLT 220 103/ul Normal 150-450 [facility] Comment on above: Performed By: #### M G, CMP, PHOS #### [facility] [address] [place] [address] Dr. Lorena Graves RBC 4.43 106/ul Normal 4.20-5.40 [facility] Comment on above: Performed By: #### M G, CMP, PHOS #### [facility] [address] [place] [address] Dr. Lorena Graves WBC 7.2 103/ul Normal 4.0-11.0 [facility] Comment on above: Performed By: #### M G, CMP, PHOS #### [facility] [address] [place] [address] Dr. Lorena Graves FERRITINon 09-22-2021 Ferritin [Mass/Vol] 22.0 ng/mL Normal 8.0-252.0 [facility] Comment on above: Performed By: #### M G, CMP, PHOS #### [facility] [address] [place] [address] Dr. Lorena Graves IRON AND TIBCon 09-22-2021 % SATURATION 13.6 % Normal [facility] Comment on above: Performed By: #### M G, CMP, PHOS #### [facility] [address] [place] [address] Dr. Lorena Graves Iron [Mass/Vol] 60.0 ug/dL Normal 50.0-170.0 [facility] Comment on above: Performed By: #### M G, CMP, PHOS #### [facility] [address] [place] [address] Dr. Lorena Graves TIBC DIRECT 440.0 ug/dL Normal 250.0-450.[address] [facility] Comment on above: Performed By: #### M G, CMP, PHOS #### [facility] [address] [place] [address] Dr. Lorena Graves MAGNESIUMon 09-22-2021 Magnesium [Mass/Vol] 2.1 mg/dL Normal 1.8-2.4 [facility] Comment on above: Performed By: #### M G, CMP, PHOS #### [facility] [address] [place] [address] Dr. Lorena Graves PHOSPHORUSon 09-22-2021 Phosphate [Mass/Vol] 5.0 mg/dL Critically high 2.6-4.7 [facility] Comment on above: Performed By: #### M G, CMP, PHOS #### [facility] [address] [place] [address] Dr. Lorena Graves PROF 14(COMP METB)on 022 Albumin [Mass/Vol] 4.2 g/dL Normal 3.4-5.0 [facility] Comment on above: Performed By: #### M G, CMP, PHOS #### [facility] [address] [place] [address] Dr. Lorena Graves Albumin/Globulin [Mass ratio] 1.2 {ratio} Normal [facility] Comment on above: Performed By: #### M G, CMP, PHOS #### [facility] [address] [address] [address] Lorena Graves ALP [Catalytic activity/Vol] 121 U/L Critically high 46-116 [facility] Comment on above: Performed By: #### M G, CMP, PHOS #### [facility] [address] [place] [address] Dr. Lorena Graves ALT [Catalytic activity/Vol] 46 U/L Normal 14-59 [facility] Comment on above: Performed By: #### M G, CMP, PHOS #### [facility] [address] [place] [address] Dr. Lorena Graves Anion gap [Moles/Vol] 12.4 mmol/L Normal [facility] Comment on above: Performed By: #### M G, CMP, PHOS #### [facility] [address] [place] [address] Dr. Lorena Graves AST [Catalytic activity/Vol] 29 U/L Normal 15-37 [facility] Comment on above: Performed By: #### M G, CMP, PHOS #### [facility] [address] [place] [address] Dr. Lorena Graves Bilirubin [Mass/Vol] 0.5 mg/dL Normal 0.2-1.0 [facility] Comment on above: Performed By: #### M G, CMP, PHOS #### [facility] [address] [place] [address] Dr. Lorena Graves Calcium [Mass/Vol] 9.1 mg/dL Normal 8.5-10.1 [facility] Comment on above: Performed By: #### M G, CMP, PHOS #### [facility] [address] [place] [address] Dr. Lorena Graves Chloride [Moles/Vol] 103 mmol/L Normal 98-107 [facility] Comment on above: Performed By: #### M G, CMP, PHOS #### [facility] [address] [place] [address] Dr. Lorena Graves CO2 [Moles/Vol] 26.2 mmol/L Normal 21.0-32.0 [facility] Comment on above: Performed By: #### M Juan, CMP, PHOS #### [facility] [address] [address] [address] Lorena Graves Creatinine [Mass/Vol] 0.57 mg/dL Normal 0.55-1.02 [facility] Comment on above: Performed By: #### M G, CMP, PHOS #### [facility] [address] [address] [address] Lorena Graves EGFR-AF CZECH >60 Normal >=60 [facility] Comment on above: Performed By: #### M Juan, CMP, PHOS #### [facility] [address] [address] [address] Lorena Graves EGFR-NON AF CZECH >60 Normal >=60 [facility] Comment on above: Performed By: #### M Juan, CMP, PHOS #### [facility] [address] [address] [address] Lorena Graves Globulin (S) [Mass/Vol] 3.4 g/dL Normal [facility] Comment on above: Performed By: #### M Juan, CMP, PHOS #### [facility] [address] [address] [address] Lorena Graves Glucose [Mass/Vol] 110 mg/dL Critically high 74-106 [facility] Comment on above: Performed By: #### M Juan, CMP, PHOS #### [facility] [address] [address] [address] Lorena Graves Potassium [Moles/Vol] 3.6 mmol/L Normal 3.5-5.1 [facility] Comment on above: Performed By: #### M G, CMP, PHOS #### [facility] [address] [address] [address] Lorena Graves Protein [Mass/Vol] 7.6 g/dL Normal 6.4-8.2 [facility] Comment on above: Performed By: #### M G, CMP, PHOS #### [facility] [address] [address] [address] Lorena Graves Sodium [Moles/Vol] 138 mmol/L Normal 136-145 [facility] Comment on above: Performed By: #### M Juan, CMP, PHOS #### [facility] [address] [address] [address] Lorena Graves Urea nitrogen [Mass/Vol] 14.0 mg/dL Normal 7.0-18.0 [facility] Comment on above: Performed By: #### M Juan, CMP, PHOS #### [facility] [address] [place] [address] Dr. Lorena Graves Urea nitrogen/Creatinine [Mass ratio] 24.6 mg/mg Normal [facility] Comment on above: Performed By: #### Bibi Martinez CMP, PHOS #### [facility] [address] [place] [address] Dr. Lorena Graves VIT B12 AND FOLATEon 022 Cobalamin (Vitamin B12) [Mass/Vol] 494.0 pg/mL Normal 193.0-986.0 [facility] Comment on above: Performed By: #### Bibi Martinez CMP, PHOS #### [facility] [address] [place] [address] Dr. Lorena Graves FOLATE 16.20 ng/mL Normal 8.60-58.90 [facility] Comment on above: Performed By: #### Bibi Martinez CMP, PHOS #### [facility] [address] [place] [address] Dr. Lorena Graves HELICOBACTER PYLORI AG STOOL on 05-12-2021 H. pylori Stool Ag, EIA Negative Normal Negative [facility] Comment on above: Performed By: #### M GABRIEL Martinez, PHOS #### [facility] [address] [place] [address] Dr. Lorena Graves GLYCOHEMOGLOBIN A1Con 2021 ADA RECOMMENDATION ADA THERAPEUTIC TARG ET 6.0 - 7.0 ACTION SUGGESTED > 7.0 Normal [facility] Comment on above: Performed By: #### Bibi Martinez CMP, PHOS #### [facility] [address] [place], [place] [address] Dr. Lorena Graves Glucose [Mass/Vol] 140 mg/dL Normal [facility] Comment on above: Performed By: #### M GABRIEL Martinez, PHOS #### [facility] [address] [place], [place] [address] Dr. Lorena Graves HbA1c (Bld) [Mass fraction] 6.5 % Critically high <=6.0 [facility] Comment on above: Performed By: #### M Juan, GABRIEL, PHOS #### [facility] [address] [place], [place] [address] Dr. Lorena Graves HISTORY PHYSICALon HISTORY PHYSICAL HNO ID: [id number]: Michell PatelMichaelervice: (none)Author Type: (none)Type: HANDPFiled: 12/05/2016 4:40 PMNote Text:COSMETIC SURGERY JERRY AGUILAR DO FACOSST. [facility]ANC[facility]-UPName: Quique AlcantaraN: [id number] HPI AND PERTINENT ROS:46-year-old female presents in [...] amammogram report must go with insurance Michell PatelLizOctsaint claire medical center 2016 Normal [facility] PROGRESSon 12-05-2016 PROGRESS HNO ID: [id number]: Mil AguilarService: (none)Author Type: PhysicianType: Progress NotesFiled: 12/05/2016 4:40 PMNote Text:COSMETIC SURGERY INSTITUTEMIL AGUILAR DO FACOSName: Quique AlcantaraMRN: [id number] see her today in consultation for bilateral [...] appointment, patient is to calloffice or return sooner.Mil Aguilar, October 2016This note was generated with voice recognition software and may containerrors, including spelling, grammar, syntax and misrecognition of what wasdictated, that are not fully corrected. Normal [facility] Encounters Encounter Date Encounter Type Care Provider Facility Start: 10-22-2024 End: 10-22-2024 Darby Charles NP Work Phone: [facility] Start: 10-22-2024 End: 10-22-2024 Darby Charles NP Work Phone: [facility] Start: 02-13-2022 End: 02-13-[address] MERRY KAY Facility:[facility] Start: 01-12-2022 End: 01-13-2022 ambulatory ROBERTA W[place]HESTER Facility:[facility] Start: 09-22-2021 End: 09-23-[address] DOCTOR MUÑIZ Facility:[facility] Start: 05-10-2021 End: 05-10-2021 ambulatory ROBERTA [place] Facility:[facility] Start: 04-07-2021 End: 04-08-[address] MERRY KAY Facility:[facility] Payers Date Payer Category Payer Private Health Insurance [employer] [id number] 1970 Unknown [id number] 1970 Unknown [id number] 1968 Unknown [id number] 1968 Unknown [id number] 1970 Unknown [id number] Unknown [id number] Social History Date Type Detail [facility] Start: 1970 Sex assigned at Not on file [facility] Gender identity [facility] Summary Purpose Family History No Family History Records FoundNo Family History Records Found Advance Directives No Advanced Directives Records FoundNo Advanced Directives Records Found Additional Source Comments INFORMATION SOURCE (unrecogn ized section and content) DATE CREATED AUTHOR 07/31/2017 [facility] DATE CREATED AUTHOR AUTHOR'S RAH ATERNIE 02/15/2022 [facility] FOR RECORDS PERTAINING TO PATIENTS WHO ARE [...] BE BASED ON THE PRIMARY CLINICAL RECORDS. [facility] [employer] provides no warranty or guarantee of the accuracy or completeness of information in this document.
[2024-10-27 19:08] LABS: Age Gdln ACOG Testing Note (.); IGP, Aptima HPV, rfx 16/18,45 Note (.)
== END 2024-10-22 12:03 | disposition home or self-care (01) ==
LOC: LAB 12:02
PROVIDERS: PCP Family Medicine; Visit Provider Nurse Practitioner Family
DX: Z01.419 Encounter for gynecological examination (general) (routine) without abnormal findings (principal)
CPT/HCPCS: 87624; 88175

== ENCOUNTER 2025-01-15 08:49 | Outpatient (OUT) | payer OTHER, SELFPAY ==
--- OUTSIDE RECORDS SUMMARY | 2025-01-08 05:53 | XMS_ITS | Continuity of Care Document ---
Author Organization [facility] Address [address] [place] [address] Phone Care Team Providers Care Assistant Designer Name Role Phone Yesenia Vaughan DO Primary Care Provider [phone] Yesenia Vaughan DO Attending Provider Care Teams Patient Care Team Team Status: Active Member Role/Relationship Status Dates Yesenia Vaughan DO Primary Care Provider Active Patient Care Team Team Status: Inactive Member Role/Relationship Status Dates Yesenia Vaughan DO Primary Care Provider Active S tart: January 08, 2025 End: January 08, 2025Yesenia Vaughan DOAttending ProviderActiveStart: January 08, 2025 End: January 08, 2025 Chief Complaint and Reason for Visit Chief Complaint Admit Date new patient January 08, 2025 9 :49am Reason for Visit Admit Date Elevated LFTs January 08, 2025 9 :49am Family history of heart disease January 08, 2025 9:49am Allergies, Adverse Reactions, Alerts Allergen Type Severity Reaction Last Updated Verified Status No Known Allergies Allergy Unknown January 08, 2025 9:59amYesActive Social History Smoking Status Status Start Date End Date Date of Observa tion Never smoked tobacco (finding) January 08, 2025 9:59am Observation Status Observation Response Date of Response Legal Sex Female (finding) Sex Assigned At BirthFemaleSept1970 Family History Relationship Condition Age at Onset Recorded Date/T morenita mother Heart disease Unknown HypertensionUnknownMyocardial infarctionUnknownfatherHeart diseaseUnknown HypertensionUnknownMyocardial infarctionUnknownbrotherHeart diseaseUnknown HypertensionUnknownMyocardial infarctionUnknown Problems Active Problems Problem Diagnosis/Recorded Date Onset Date Stat us Family history of heart disease January 08, 2025 10: 36am Unknown Active Elevated LFTs January 08, 2025 10:35am Unknown Active Medications Medication Status Dose Units Route Directions Qty Days Refills S tart Date Stop Date End Date Reason(s) Instructions Adherence Multivitamin tablet Active 1 TAB PO Daily January 06, 2025 12:00amComplies with drug therapyMagnesium Oxide 400 mg magnesium sjusktvXyicqhbccoov442HKBWBzkdyQtziopia 2nd, 2025 12:00amDecemb2024 9:59am Vital Signs Vital Reading Result Reference Range Collection Date/Time Height 72 [in_i] January 08, 2025 9:78tjDhjhhq90.17 kgDece2024 9:54amHeart Rate68 /yvl64-744DwknduikJanuary 08, 2025 9:54amRespiratory rate16 /yki52-40Yazwtlym 4th, 2025 9:54amOxygen saturation by Pulse girruhdm75 %95-1002024 9:54amBP Lmnkfiqz424 mm[Hg]100-140[facility]24 9:54amBP Qcmxphsni10 mm[Hg] 60-100[facility] 2024 9:54amBMI (Body Mass Index)27.2 kg/v1Vxgfmarw2024 9:54am Advance Directives Advance Directive Response Recorded Date/ Time Advance Directives No December 02, 2024 12:25pm Insurance Providers Guarantor Quique [facility] Address [address] [place] [id number] Info.Home Phone: H Payer Group Member ID Coverage Type Subscriber Relationship to Subscriber Effective Date Expiration Date Chetan KAUR/MACIEL Id: [id number] [facility] Id: [id number] [address] [address] Home Phone: HSelf Encounters Encounter Location(s) Arrival/Admit Date Discharge/Departure Date Discharge/Departure Disposition Provider(s) Departed Physician/ Provider Office Visit -[facility] January 08, 2025 9:49am January 08, 2025 10:52am Discharged to home care or self care (routine discharge) Yesenia Vaughan , DO Recent Diagnosis Onset Date Admit Date Elevated LFTs Unknown January 08 9:49am Family history of heart disease Unknown January 08, 2025 9:49am Assessments Diagnosis Onset Date Resolution Status Admit Date Elevated LFTs acuteDecemb2024 9:49amFamily history of heart diseaseacuteDece2024 9:49am Plan of Treatment Future Tests Future scheduled test information is unavailable Pending Tests Test Name Ordered Date Scheduled Date US abdomen limited January 08, 2025 10:41am Comprehensive Metabolic PanelDecember 2024 10:39amCT heart calcium score wo January 08, 2025 10:39am Future Visits Future appointment information is unavailable Future Procedures Procedure Name Ordered Date Scheduled Date STR cardiac stress/regular January 08, 2025 10 :41am Hepatitis Acute PanelDecember 2024 10:39amLipid PanelDeceer 2024 10:39amThyroid Stimulating HormoneDeceer 2024 10:39am Future Medications Future medication information is unavailable Patient Instructions Patient instructions are unavailable
--- OUTSIDE RECORDS SUMMARY | 2025-01-15 08:54 | XMS_ITS | CCD ---
Author Organization [facility] Inform ion Partnership [facility] Care Team Providers Care Local City Driver Name Role Phone HOUSE, DR SOUSA Admitting Unavailable HOUSE, DR SOUSA Attending Unavailable HOUSE, DR SOUSA Primary Care Unavailable HOUSE, DR SOUSA Consulting Unavailable HOUSE, DR SOUSA Primary Care Unavailable KATGARLAND, ENRRIQUE Barahona Admitting Unavailable KATKO, ENRRIQUE Barahona Attending Unavailable MARKER, DR CHOI Consulting Unavailable KATKOENRRIQUE Consulting Unavailable CHAKYASHLEE Consulting Unavailable LALOR, ROBERTA [...] ROBERTA Consulting Unavailable Unavailable Primary Care Provider UnavailSHELBI Garcia Attending Unavailable SHELBI CHARLES Primary Care Physician [phone] SHELBI CHARLES Referring Unavailable SHELBI CHARLES Attending Unavailable SHEBLI CHARLES Admitting Unavailable Jani BARRETT Referring Unavailable Luke MARTINEZ Attending Unavailable Allergies Allergy ClassificationReported Allergen(s)Allergy TypeDate of OnsetReaction(s) Facility (1 source)No Known Medication Allergies; Translations: [No Known Medication Allergies]Propensity to adverse reactions (disorder)[facility] Repository Medications Current Medications MedicationDrug Class(es)DatesSig (Normalized)Sig (Original)estradiol 0.1 mg/ml vaginal cream (3 sources)EstrogenStart: 26-57-7447klhqqdubg 0.1 mg/g Vag Crm as directed, Refill(s) 0 Start Date: 10/29/24 Status: Ordered Repeat number: 1Start: 73-55-6461vnpbvhekj (Estrace) 0.1 MG/GM vaginal cream Indications: Postmenopausal state , Menopausal vaginal dryness 2g vaginal daily for 2 weeks, then 2 times weekly following initial 2 weeks 42.5 g 10/22/2024 Activemagnesium oxide 400 mg oral tablet (3 sources)Start: 22-85-3225eyen 1 tablet by mouth once daily as neededmagnesium oxide 400 mg Tab 400 mg = 1 tab(s), Oral, Daily, PRN cramps, Refills(s) 0 Start Date: 10/29/24 Status: Ordered Repeat number: 1take 1 tablet by mouth once daily magnesium oxide (Mag-Ox) 400 mg tablet Take 400 mg by mouth Daily ActiveMultiple Vitamin (multivitamin) tablet (2 sources)take 1 tablet by mouth once dailyMultiple Vitamin (multivitamin) tablet Take 1 tablet by mouth Daily ActiveMultivitamin preparation (1 source)Start: 57-10-5361ehbc 1 tablet by mouth once dailymultivitamin 1 tab(s), Oral, Daily, Refill(s) 0 Start Date: 10/29/24 Status: Ordered Repeat number: 1 Problems Problem ClassificationProblemDateDocumented DateEpisodic/ChronicAnxiety disorders (1 source)Other specified anxiety disorders; Translations: [OTHER SPECIFIED ANXIETY DISORDERS]Onset: 85-74-8750InlpnnlMlggxxnm mellitus without complication (5 sources)Type 2 diabetes mellitus without complications; Translations: [TYPE 2 DM WITHOUT COMPLICATIONS]Onset: 59-95-5493KhyezjcUbdqaytcxg disorders (5 sources)Gastro-esophageal reflux disease without esophagitis; Translations: [GERD WITHOUT ESOPHAGITIS]Onset: 93-12-1088StzxaabYohxxojdz hypertension (2 sources)Essential (primary) hypertension; Translations: [ESSENTIAL PRIMARY HYPERTENSION]Onset: 65-69-7293GroombcQigrriauri disorders (1 source)Vaginal dryness; Translations: [Menopausal and female climacteric states]53-88-4621XscfpckOsrgqlvptarhnt (1 source)Unspecified osteoarthritis, unspecified site; Translations: [UNSPECIFIED OSTEOARTHRITIS UNS SITE]Onset: 23-02-4134HgbcyqgUazii gastrointestinal disorders (5 sources)Intestinal malabsorption, unspecified; Translations: [INTESTINAL MALABSORPTION UNS]Onset: 78-42-3446CxgojznLuwwx gastrointestinal disorders (5 sources)Bariatric surgery status; Translations: [BARIATRIC SURGERY STATUS] Onset: 25-63-6518KokouzsfPxgiu nutritional; endocrine; and metabolic disorders (1 source)Morbid (severe) obesity due to excess calories; Translations: [MORBID SEVERE OBES D/T EXCESS ROSEANNA]Onset: 57-69-6464CludpenBrhij nutritional; endocrine; and metabolic disorders (1 source)Obesity caused by energy zjfynsmov81-08-4760BvtvmyuIqeox nutritional; endocrine; and metabolic disorders (1 source)Overweight in adulthood with body mass index of 25 or more but less than 2065-40-8680FqtjnsljZyibh screening for suspected conditions (not mental disorders or infectious disease) (2 sources)Patient encounter status; Translations: [Encounter for screening mammogram for malignant neoplasm of breast]Onset: [id number] Residual codes; unclassified (3 sources)Disorientation, unspecified; Translations: [DISORIENTATION UNSPECIFIED]Onset: 37-66-1321SmtispqaHtmpfblp codes; unclassified (1 source)Other amnesia; Translations: [OTHER AMNESIA]Onset: 55-05-8829Jzbdxqcg Residual codes; unclassified (1 source)Edema, unspecified; Translations: [EDEMA UNSPECIFIED]Onset: 01-16-2022 EpisodicResidual codes; unclassified (1 source)Postmenopausal state; Translations: [Asymptomatic menopausal state] 70-89-7863VeulqnyeIifmzyczzxyo (1 source)CONTACT W/AND (SUSP) EXPOS COVID-19; Translations: [CONTACT W/AND (SUSP) EXPOS COVID-19]Onset: 95-59-6815Gfppgbtgmvsh (1 source)Patient encounter -[id number] Results Test NameValueInterpretationReference RangeFacilityBD Bone Density DEXAon 29-39-8251ZL Bone Density DEXAExam Date/Time: 12/04/2024 09:54 EDT Reason for Exam: Z78.0 Report IMPRESSION: OSTEOPENIA. The 10 year probability (FRAX) of a major osteoporotic fracture based on the left femoral neck bone marrow density is: 6.3%, and hip fracture 0.4%. EXAM: BD Bone Density DEXA DATE: 12/04/2024 8:22 AM CLINICAL HISTORY: Z78.0. COMPARISON: None available. COMMENTS: The lumbar spine and both hips were scanned. The mean bone mineral density from L1 to L4 is 0.899 g/cm2 and this value is -2.3 standard of deviation below the standard reference value for a young adult. Bone mineral density of the left femoral neck is 0.876 g/cm2 and this value is -1.2 standard of deviation below the standard reference value. Bone mineral density of the right femoral neck is 0.879 g/cm2 and this value is -1.1 standard of deviation below the standard reference value. These values meet WHO criteria for osteopenia. RECOMMENDATIONS: 1. All patients should optimize her calcium and vitamin D intake. 2. Consider FDA-approved medical therapies in postmenopausal women and minimal age 50 years and older, based on the following: - hip or vertebral (clinical or morphometric) fracture. - T-score less than or equal to -2.5 at the femoral neck or spine after the appropriate evaluation to exclude secondary causes. - Low bone density (T score between -1.0 and -2.5 at the femoral neck or spine) and a 10 year probability of hip fracture greater than or equal to 3% or a 10-year probability of a major osteoporosis-related fracture greater than or equal to 20% based on FRAX calculation. - Clinician judgment and/or patient preferences may indicate treatment for palpable attenuation fracture probability is above or below these levels. - Further guidance on treatment can be found at the National Osteoporosis Foundation's website: bonesource.org 3. Patients with diagnosis of osteoporosis or high risk for fracture. There are Report irregular bone mineral density tests. For patients eligible for Medicare, routine testing is allowed once every 2 years. Testing frequency can be increased to 1 year for patient's history of rapidly progressing disease, those who are receiving or discontinuing medical therapy to restore bone mass or have additional risk factors. Ordering Provider: , FINAL REPORT Dictated: 12/04/2024 4:58 pm Shemar Loyd MD Signed (Electronic Signature): 12/04/2024 4:58 pm Signed by: Shemar Loyd MD Transcribed by: VIANEY Technologist: [facility] COMMUNITY HOSPITALJingDelaware County HospitalMA Mamm Screen w/CAD if perf and 3D Bilon 59-91-2095KY Mamm Screen w/CAD if perf and 3D BilExam Date/Time: 12/04/2024 08:23 EDT Reason for Exam: Z12.31 Report IMPRESSION: BIRADS 2 BENIGN FINDINGS, NORMAL INTERVAL FOLLOW-UP Follow-up: 12 MONTH RECALL Breast Density: Heterogeneously dense, which may obscure small masses. Vascular calcifications: Present. EXAM: MA Mamm Screen w/CAD if perf and 3D Carlos DATE: 12/04/2024 8:04 AM CLINICAL HISTORY: Z12.31. COMPARISONS: None available. TECHNIQUE: Routine full-field digital mammograms and 3D breast tomosynthesis were obtained of both breasts. FINDINGS: Postoperative changes from previous reduction mammoplasty and benign microcalcifications. Dense Breast: Yes. CAD analysis was performed and used in the interpretation. Board Certified Radiologists. Accredited by the ACR and FDA. MAMMOGRAPHY IS VERY IMPORTANT TO YOUR HEALTH. THE CURRENT [place] [employer] OF [employer] AND [employer] GUIDELINES RECOMMENDS ANNUAL MAMMOGRAPHY BEGINNING AT AGE 40. THIS FACILITY UTILIZES A REMINDER SYSTEM TO ENSURE ALL PATIENTS RECEIVE REMINDER NOTIFICATIONS AT THE APPROPRIATE TIME BASED ON THE RECOMMENDATIONS OF THIS EXAM. Report Ordering Provider: , FINAL REPORT Dictated: 12/04/2024 5:07 pm Shemar Loyd MD Signed (Electronic Signature): 12/04/2024 5:07 pm Signed by: Shemar Loyd MD Transcribed by: VIANEY Technologist: YOGI Assessment: BI-RADS Category 2-Benign finding Recommendation: Normal interval [facility]upJoint [facility] Ambulatory Visit Summaryon 19-63-8744Qoccmhxomp Visit SummaryAmbulatory Visit Summary MERRICK PAT :1970 Visit Date:11/26/2024 Ambulatory Visit Instructions Your Diagnosis Screening for malignant neoplasm of colon Your Care Team Attending Physician - Luke MARTINEZ MD Primary Care Physician - SHELBI CHARLES CNP Referring Physician - Jani BARRETT DO This Is Your Medications List Contact prescribing physician if questions or concerns estradiol topical (estradiol 0.1 mg/g Vag Crm) magnesium oxide (magnesium oxide 400 mg Tab) multivitamin Procedures Performed Gastric bypass (07/2021), Breast reduction, Endometrial ablation, Excision of cyst, Extraction of wisdom tooth, Tonsillectomy. Discharge Vitals Heart Rate (Peripheral) 76 Respiratory Rate 16 Blood Pressure 128/88 Height 182.8 cm Height 72 in Weight 91.9 kg Weight 202.605 lb BMI 27.5 What to do next Scheduled Follow-Up Appointments 2024 8:15 AM EDT Where: [facility] Mammography 2024 8:30 AM EDT Where: [facility] Bone Density Medications What How Much When Instructions Unchanged estradiol topical (estradiol 0.1 mg/ g Vag Crm) as directed Contact prescribing physicianif questions or concerns Unchanged magnesium oxide (magnesium oxide 400 mg Tab) 1 Tablets By Mouth Every day as needed for cramps Contact prescribing physician if questions or concerns Unchanged multivitamin 1 Tablets By Mouth Every day Contact prescribing physician if questions or concerns Allergies No Known Allergies No Known Medication Allergies Problems Ongoing - Any problem that you are currently receiving treatment for. BMI 27.0-27.9,adult Obesity due to excess calories Screening for malignant neoplasm of colon Patient Survey You may receive a survey via text or e-mail asking about your office visit. Please share your experience with us by completing your survey. We appreciate your feedback and thank you for choosing us for your care. Patient Portal You may access all of your results and other medical record information on our secure patient portal. If you are not signed up for this yet, please contact [employer] Information [employer] at [phone] to get signed up today. Language Information Language assistance services are available as needed. [facility] HospitalIGP,APTIMA HPV,AGE GDLNon 89-55-3861EEO GDLN ACOG TESTINGNote.NOMS HealthcareComment on above:TESTS RESULT FLAG UNITS REF RANGE LAB Clinician Provided Cytology Information Source.............Cervix;Endocervix No. of containers..01 ThinPrep Vial Age Algo ACOG Arlin... 30-65 01 FLAG LEGEND: L-Low Normal,H-High Normal,LL-Alert Low,HH-Alert High <-Panic Low,>-Panic High,A-Abnormal,AA-Critical Abnormal Performed at: 01 =[address] [place] [address] Lisseth Christian MD, HPV APTIMANegativeNegativeNOMS HealthcareComment on above:This nucleic acid amplification test detects fourteen high- risk HPV types (16,18,31,33,35,39,45,51,52,56,58,59,66,68) without differentiation. Performed at: =[facility] [id number] Business Development Specialist: Lisseth Christian MD, Phone: [phone] Performed at: [address] [id number] Business Development Specialist: Lisseth Christian MD, Phone: [phone] IGP, APTIMA HPV, RFX 16/18,45Note.NOMS HealthcareComment on above:TESTS RESULT FLAG UNITS REF RANGE LAB DIAGNOSIS: 02 NEGATIVE FOR INTRAEPITHELIAL LESION OR MALIGNANCY. CELLULAR CHANGES ASSOCIATED WITH ATROPHY AND INFLAMMATION ARE PRESENT. Specimen adequacy: 02 Satisfactory for evaluation. Endocervical component may not be distinguished in cases of atrophy. Performed by: 02 Norma Wood, Rolled Seat Trimmer ([facility]) . 02 Note: Note 02 The Pap smear is a screening test designed to aid in the detection of premalignant and malignant conditions of the uterine cervix. It is not a diagnostic procedure and should not be used as the sole means of detecting cervical cancer. Both false-positive and false-negative reports do occur. Test Methodology: Note 02 This liquid based ThinPrep(R) pap test was screened with the use of an image guided system. HPV Genotype Reflex Note 02 Criteria not met, HPV Genotype not performed. FLAG LEGEND: L-Low Normal,H-High Normal,LL-Alert Low,HH-Alert High <-Panic Low,>-Panic High,A-Abnormal,AA-Critical Abnormal Performed at: 02 [address] [facility] [address] [address] Lisseth Christian MD, BRUSH-SPATULA CERVIX ENDOCERVIX CLINISYNCNOMS [facility] AUTO DIFFon [id number] #0.0 103/ulNormal0.0-0.1 The [facility]S HospitalComment on above:Performed By: #### MG, CMP, PHOS #### [facility] [address] [address] [address] Lorena GravesBasophils/100 WBC (Bld)0.4 %Normal0.2-2.0[facility] Comment on above:Performed By: #### MG, CMP, PHOS #### [facility] [address] [address] [address] Lorena Dailey #0.1 103/ulNormal0.0-0.7The [facility]S HospitalComment on above: Performed By: #### MG, CMP, PHOS #### [facility] [address] [address] [address] Lorena Huizarosinophils/100 WBC (Bld)1.1 %Normal0.9-7.0The [facility] Comment on above:Performed By: #### MG, CMP, PHOS #### [facility] [address] [place] [address] Dr. Lorena Huizarrythrocyte distribution width (RBC) [Ratio]13.3 %Eakkwt05.0-15.0 The [facility]S HospitalComment on above:Performed By: #### MG, CMP, PHOS #### [facility] [address] [place] [address] Dr. Lorena GravesHematocrit (Bld) [Volume fraction]38.9 %Zoejsh92.0-48.0The [facility]S HospitalComment on above:Performed By: #### MG, CMP, PHOS #### [facility] [address] [place] [address] Dr. Lorena GravesHemoglobin (Bld) [Mass/Vol]13.7 g/bOUoxzkc20.0-16.0The [facility]S HospitalComment on above:Performed By: #### MG, CMP, PHOS #### [facility] [address] [place] [address] Dr. Lorena Lozoya #0.03 10e3/ulNormal0.00-0.03The [facility] Centerment on above:Performed By: #### MG, CMP, PHOS #### [facility] [address] [place] [address] Dr. Lorena Lozoya %0.4 %Normal0.0-0.5The [facility]S HospitalComment on above: Performed By: #### MG, CMP, PHOS #### [facility] [address] [place] [address] Dr. Lorena KwonMPH #1.9 103/ulNormal1.2-3.8The [facility]S HospitalComment on above:Performed By: #### MG, CMP, PHOS #### [facility] [address] [place] [address] Dr. Lorena Kwonmphocytes/100 WBC (Bld)24.2 %Kqdjmt69.5-60.0The [facility] HospitalComment on above:Performed By: #### MG, CMP, PHOS #### [facility] [address] [address] [address] Lorena Bose DIFF REQNONormalThe [facility] Children'S HospitalComment on above: Performed By: #### MG, CMP, PHOS #### [facility] [address] [place] [address] Dr. Lorena Arias (RBC) [Entitic mass]30.2 mtLhptyo51.7-34.0The [facility] HospitalComment on above:Performed By: #### MG, CMP, PHOS #### [facility] [address] [place] [address] Dr. Lorena Arias (RBC) [Mass/Vol]35.2 g/bGLxqdwe74.9-35.2The [facility] HospitalComment on above:Performed By: #### MG, CMP, PHOS #### [facility] [address] [place] [address] Dr. Lorena Arias (RBC) [Entitic vol]85.9 tPGrfuur06.0-99.0The [facility] HospitalComment on above:Performed By: #### MG, CMP, PHOS #### [facility] [address] [place] [address] Dr. Lorena Baker #0.4 103/ulNormal0.3-0.8The [facility]S HospitalComment on above:Performed By: #### MG, CMP, PHOS #### [facility] [address] [place] [address] Dr. Lorena Avilezocytes/100 WBC (Bld)5.5 %Normal1.7-12.0The [facility] Comment on above:Performed By: #### MG, CMP, PHOS #### [facility] [address] [place] [address] Dr. Lorena Torres #5.4 103/ulNormal1.4-6.5The [facility] HospitalComment on above:Performed By: #### MG, CMP, PHOS #### [facility] [address] [place] [address] Dr. Lorena Lawutrophils/100 WBC (Bld)68.4 %Vjmcbc04.0-75.0The [facility] Centerment on above:Performed By: #### MG, CMP, PHOS #### [facility] [address] [place] [address] Dr. Lorena Meridalet mean volume (Bld) [Entitic vol]10.7 fLNormal9.5-13.5The [facility] HospitalComment on above:Performed By: #### MG, CMP, PHOS #### [facility] [address] [place] [address] Dr. Lorena GravesPLT194 103/gkPoocmk931-276Wwm [facility] on above: Performed By: #### MG, CMP, PHOS #### [facility] [address] [place] [address] Dr. Lorena GravesRBC4.53 106/ulNormal4.20-5.40The [facility] Centerment on above:Performed By: #### MG, CMP, PHOS #### [facility] [address] [place] [address] Dr. Lorena GravesWBC7.9 103/ulNormal4.0-11.0The [facility] on above: Performed By: #### MG, CMP, PHOS #### [facility] [address] [place] [address] Dr. Lorena GravesCT HEAD WO CONon [id number] HEAD WO CONEXAMINATION: CT HEAD WO CON HISTORY: Acute confusion [...] Electronically authenticated by: ASHLEE MASCORRO Date: 2022-02-13 20:52NoSt. John of God HospitalCovid-19 PCR (CVDTBH)on 67-48-0534FSUL-CoV-2 (COVID-19) RNA TAYLOR+probe Ql (Unsp spec)Not detectedNormalNOT DETECTEDMarietta Osteopathic Clinic Comment on above:Result Comment: When diagnostic testing is negative, the [...] for this test is supported by the [place] of Health and Human Service's declaration that circumstances exist to justify the emergency use of in vitro diagnostics for the detection and/or diagnosis of the virus that causes COVID-19. This EUA will remain in effect for the duration of the COVID-19 declaration justifying emergency of IVDs, unless it is terminated or revoked by the FDA (after which the test may no longer be used).Performed By: #### CVDTBH #### [facility] [address] [place] [address] Dr. Lorena Wolfe URINE PROFILEon 37-66-8724Zxyalllhz Ql (U)NegativeNormal NEGATIVEPomerene Hospital on above:Performed By: #### MG, CMP, PHOS #### [facility] [address] [place] [address] Dr. Lorena Flores (U)CLEARNormalCLEARMarietta Osteopathic ClinicComment on above: Performed By: #### MG, CMP, PHOS #### [facility] [address] [place] [address] Dr. Lorena Haines (U)LT. YELLOWNormalYELLOWMarietta Osteopathic ClinicComcaro center on above:Performed By: #### MG, CMP, PHOS #### [facility] [address] [address] [address] Lorena Krause micrscopic examination will be performed if indicated. NormalMarietta Osteopathic ClinicComment on above:Performed By: #### MG, CMP, PHOS #### [facility] [address] [place] [address] Dr. Lorena GravesGlucose Ql (U)NegativeNormalNEGATIVEMarietta Osteopathic ClinicComment on above:Performed By: #### MG, CMP, PHOS #### [facility] [address] [place] [address] Dr. Lorena GravesHemoglobin Ql (U)NegativeNormalNEGLakeHealth Beachwood Medical Center Comment on above:Performed By: #### MG, CMP, PHOS #### [facility] [address] [place] [address] Dr. Lorena GravesKetones Ql (U)15 mg/dlAbnormalNEGLakeHealth Beachwood Medical Center Comment on above:Performed By: #### MG, CMP, PHOS #### [facility] [address] [place] [address] Dr. Lorena GravesLEUKOCYTESNegativeNormalNEGATIVEMarietta Osteopathic ClinicComment on above:Performed By: #### MG, CMP, PHOS #### [facility] [address] [place] [address] Dr. Lorena GravesNitrite Ql (U)NegativeNormalNEGATIVEMarietta Osteopathic ClinicComment on above:Performed By: #### MG, CMP, PHOS #### [facility] [address] [place] [address] Dr. Lorena GravespH (U)5.5 [pH]Normal5-9[facility] ClinicComment on above: Performed By: #### MG, CMP, PHOS #### [facility] [address] [place] [address] Dr. Lorena GravesSPEC GRAVITY1.526Ajioyg7.005-<=1.025The [facility]S HospitalComment on above:Performed By: #### MG, CMP, PHOS #### [facility] [address] [place] [address] Dr. Lorena Akhtar PROTEINNegativeNormalNEGATIVE/ TRACEThe [facility] Comment on above:Performed By: #### MGGABRIEL, PHOS #### [facility] [address] [place] [address] Dr. Lorena Doll MICRO INDNOT INDICATEDMiami Valley HospitalComment on above:Performed By: #### MG CMP, PHOS #### [facility] [address] [place] [address] Dr. Lorena Peraltabiljulio césargen Qn (U)0.2 {Magdalene'U}/dLNormal0.2 - 1.0The [facility]S HospitalComment on above:Performed By: #### GABRIEL GE, PHOS #### [facility] [address] [place] [address] Dr. Lorena Ni AND B AGon 26-83-0719KCSNHTMRAPEPBDiley Ridge Medical CenterComment on above:Result Comment: Negative for Flu A protein angiten. Infection due to Flu A cannot be ruled out. FluA angiten in the sample may be below the detection limit of the test.Performed By: #### INFLUAB #### [facility] [address] [place] [address] Dr. Lorena MullinsUBNEGMarietta Memorial Hospitalment on above: Result Comment: Negative for Flu B protein antigen. Infection due to Flu B cannot be ruled out. FluB antigen in the sample may be below the detection limit of the test.Performed By: #### INFLUAB #### [facility] [address] [place] [address] Dr. Lorena Ni AGNegativeNormalNEGATIVE SEE COMMENTMarietta Osteopathic ClinicComcaro center on above:Performed By: #### INFLUAB #### [facility] [address] [place] [address] Dr. Lorena Severino AGNegativeNormalNEGATIVE SEE COMMENTMarietta Osteopathic ClinicComcaro center on above:Performed By: #### INFLUAB #### [facility] [address] [place] [address] Dr. Lorena Gaffney CHEM 8 (BAS METB)on 28-43-2379Ypcvy gap [Moles/Vol]12.6 mmol/LNormalMarietta Osteopathic ClinicComment on above:Performed By: #### BMP #### [facility] [address] [address] [address] Lorena GravesCalcium [Mass/Vol]9.3 mg/dLNormal8.5-10.1The [facility] Comment on above:Performed By: #### BMP #### [facility] [facility] [address] [address] [address] Lorena GravesChloride [Moles/Vol]104 mmol/CYvvtmp75-331Jpu [facility] Comment on above:Performed By: #### BMP #### [facility] [address] [place] [address] Dr. Lorena GravesCO2 [Moles/Vol]26.8 mmol/LSzjmkz64.0-32.0The [facility] Comment on above:Performed By: #### BMP #### [facility] [address] [address] [address] Lorena GravesCreatinine [Mass/Vol]0.56 mg/dLNormal0.55-1.02The [facility] HospitalComment on above:Performed By: #### BMP #### [facility] [address] [place] [address] Dr. Lorena HuizarGFR-AF SALVADOREAN>60Normal>=60The [facility] HospitalComment on above:Performed By: #### BMP #### [facility] [address] [address] [address] Lorena HuizarGFR-NON AF SALVADOREAN>60Normal>=60The [facility] HospitalComment on above:Performed By: #### BMP #### [facility] [address] [address] [address] Lorena GravesGlucose [Mass/Vol]94 mg/sECwrdcy62-968JbyMarietta [facility]opathic [facility] Comment on above:Performed By: #### BMP #### [facility] [address] [place] [address] Dr. Lorena GravesPotassium [Moles/Vol]3.4 mmol/LCritically low3.5-5.1The [facility] HospitalComment on above:Performed By: #### BMP #### [facility] [address] [place] [address] Dr. Lorena GravesSodium [Moles/Vol]140 mmol/NMevhqa396-266Hsq [facility] Comment on above:Performed By: #### BMP #### [facility] [address] [place] [address] Dr. Lorena GravesUrea nitrogen [Mass/Vol]11.0 mg/dLNormal7.0-18.0The [facility] HospitalComment on above:Performed By: #### BMP #### [facility] [address] [place] [address] Dr. Lorena Trejo nitrogen/Creatinine [Mass ratio]19.6 mg/mgNormalThe [facility] HospitalComment on above:Performed By: #### BMP #### [facility] [address] [place] [address] Dr. Lorena GravesVITAMIN B1 (THIAMINE)on 11-48-0143Xxr. B1, Whole Sfbcp335.3 nmol/DZxmiqn38.5-200.0The [facility] HospitalComment on above:Performed By: #### MG, CMP, PHOS #### [facility] [address] [place] [address] Dr. Lorena Bangura AUTO DIFFon 98-30-3029KXKD #0.0 103/ulNormal0.0-0.1The [facility] HospitalComment on above:Performed By: #### MG, CMP, PHOS #### [facility] [address] [place] [address] Dr. Lorena GravesBasophils/100 WBC (Bld)0.3 %Normal0.2-2.0The [facility] Comment on above:Performed By: #### MG, CMP, PHOS #### [facility] [address] [place] [address] Dr. Lorena HuizarO #0.1 103/ulNormal0.0-0.7The [facility] HospitalComment on above: Performed By: #### MG, CMP, PHOS #### [facility] [address] [place] [address] Dr. Lorena Huizarosinophils/100 WBC (Bld)1.5 %Normal0.9-7.0The [facility] Comment on above:Performed By: #### MG, CMP, PHOS #### [facility] [address] [place] [address] Dr. Lorena Huizarrythrocyte distribution width (RBC) [Ratio]14.5 %Evbfop04.0-15.0 The [facility] HospitalComment on above:Performed By: #### MG, CMP, PHOS #### [facility] [address] [place] [address] Dr. Lorena GravesHematocrit (Bld) [Volume fraction]39.9 %Azfxwp26.0-48.0The [facility] Centerment on above:Performed By: #### MG, CMP, PHOS #### [facility] [address] [place] [address] Dr. Lorena GravesHemoglobin (Bld) [Mass/Vol]13.2 g/yXEzclok27.0-16.0The [facility] Centerment on above:Performed By: #### MG, CMP, PHOS #### [facility] [address] [place] [address] Dr. Lorena Lozoya #0.02 10e3/ulNormal0.00-0.03The [facility] Centerment on above:Performed By: #### MG, CMP, PHOS #### [facility] [address] [place] [address] Dr. Lorena Lozoya %0.3 %Normal0.0-0.5The [facility] Centerment on above: Performed By: #### MG, CMP, PHOS #### [facility] [address] [place] [address] Dr. Lorena KwonMPH #2.1 103/ulNormal1.2-3.8The [facility] HospitalComment on above:Performed By: #### MG, CMP, PHOS #### [facility] [address] [place] [address] Dr. Lorena Kwonmphocytes/100 WBC (Bld)28.4 %Edmsla13.5-60.0The [facility] HospitalComment on above:Performed By: #### MG, CMP, PHOS #### [facility] [address] [place] [address] Dr. Lorena VillaUAL DIFF REQNONormalThe [facility]S HospitalComment on above: Performed By: #### MG, CMP, PHOS #### [facility] [address] [place] [address] Dr. Lorena Arias (RBC) [Entitic mass]30.1 maRqjcyq41.7-34.0The [facility] HospitalComment on above:Performed By: #### MG, CMP, PHOS #### [facility] [address] [place] [address] Dr. Lorena Arias (RBC) [Mass/Vol]33.1 g/gPAsbkcl48.9-35.2The [facility] HospitalComment on above:Performed By: #### MG, CMP, PHOS #### [facility] [address] [place] [address] Dr. Lorena Allred (RBC) [Entitic vol]91.1 pNCpbxpw03.0-99.0The [facility] HospitalComment on above:Performed By: #### MG, CMP, PHOS #### [facility] [address] [place] [address] Dr. Lorena Baker #0.5 103/ulNormal0.3-0.8The [facility] HospitalComment on above:Performed By: #### MG, CMP, PHOS #### [facility] [address] [place] [address] Dr. Lorena Avilezocytes/100 WBC (Bld)6.2 %Normal1.7-12.0[facility] Comment on above:Performed By: #### MG, CMP, PHOS #### [facility] [address] [place] [address] Dr. Lorena Torres #4.7 103/ulNormal1.4-6.5The [facility] HospitalComment on above:Performed By: #### MG, CMP, PHOS #### [facility] [address] [place] [address] Dr. Lorena Lawutrophils/100 WBC (Bld)63.3 %Riatcq69.0-75.0The [facility] HospitalComment on above:Performed By: #### MG, CMP, PHOS #### [facility] [address] [place] [address] Dr. Lorena Hernandez mean volume (Bld) [Entitic vol]10.5 fLNormal9.5-13.5The [facility] HospitalComment on above:Performed By: #### MG, CMP, PHOS #### [facility] [address] [place] [address] Dr. Lorena GravesPLT208 103/cfVwtcer104-739Ycc [facility] HospitalComment on above: Performed By: #### MG, CMP, PHOS #### [facility] [address] [place] [address] Dr. Lorena GravesRBC4.38 106/ulNormal4.20-5.40The [facility] on above:Performed By: #### MG, CMP, PHOS #### [facility] [address] [place] [address] Dr. Lorena GravesWBC7.4 103/ulNormal4.0-11.0The [facility] Centerment on above: Performed By: #### MG, CMP, PHOS #### [facility] [address] [place] [address] Dr. Lorena GravesFERRITINkrystal 28-86-9475Rxwuhqro [Mass/Vol]ng/mLCritically low 8.0-252.0The [facility] HospitalComment on above:Performed By: #### VITAD, B12FOL, IRON, FERR #### [facility] [address] [place] [address] Dr. Lorena Jeffers 88-32-2602Nywl [Mass/Vol]62.0 ug/wFDivbqp99.0-170.0The [facility] HospitalComment on above:Performed By: #### VITAD, B12FOL, IRON, FERR #### [facility] [address] [place] [address] Dr. Lorena GravesMAGNESIUMon 95-43-2508Xlmynyzex [Mass/Vol]2.2 mg/dLNormal1.8-2.4 The [facility] HospitalComment on above:Performed By: #### MG, CMP, PHOS #### [facility] [address] [place] [address] Dr. Lorena GravesPHOSPHORUSon 60-46-8192Nzmgainll [Mass/Vol]4.3 mg/dLNormal2.6-4.7 The [facility] HospitalComment on above:Performed By: #### MG, CMP, PHOS #### [facility] [address] [place] [address] Dr. Lorena GrvaesPROF 14(COMP METB)on 33-34-3200Nhcjmxn [Mass/Vol]4.0 g/dLNormal 3.4-5.0The [facility] HospitalComment on above:Performed By: #### MG, CMP, PHOS #### [facility] [address] [place] [address] Dr. Lorena GravesAlbumin/Globulin [Mass ratio]1.2 {ratio}NormalThe [facility] HospitalComment on above:Performed By: #### MG, CMP, PHOS #### [facility] [address] [place] [address] Dr. Lorena ClintonP [Catalytic activity/Vol]144 U/LCritically mzax06-512Lva [facility] HospitalComment on above:Performed By: #### MG, CMP, PHOS #### [facility] [address] [place] [address] Dr. Lorena Lynch [Catalytic activity/Vol]34 U/RMkbyzp13-59Pyf [facility] HospitalComment on above:Performed By: #### MG, CMP, PHOS #### [facility] [address] [address] [address] Lorena GravesAnion gap [Moles/Vol]9.2 mmol/LNormalThe [facility] HospitalComment on above:Performed By: #### MG, CMP, PHOS #### [facility] [address] [address] [address] Lorena GravesAST [Catalytic activity/Vol]28 U/HXnwbit00-88Vbc [facility] HospitalComment on above:Performed By: #### MG, CMP, PHOS #### [facility] [address] [address] [address] Lorena GravesBilirubin [Mass/Vol]0.5 mg/dLNormal0.2-1.0The [facility] Comment on above:Performed By: #### MG, CMP, PHOS #### [facility] [address] [address] [address] Lorena GravesCalcium [Mass/Vol]8.9 mg/dLNormal8.5-10.1The [facility] Comment on above:Performed By: #### MG, CMP, PHOS #### [facility] [address] [address] [address] Lorena GravesChloride [Moles/Vol]103 mmol/LLgxpvs81-695Sek [facility] Comment on above:Performed By: #### MG, CMP, PHOS #### [facility] [address] [address] [address] Lorena GravesCO2 [Moles/Vol]28.6 mmol/DIwbwoh45.0-32.0The [facility] Comment on above:Performed By: #### MG, CMP, PHOS #### [facility] [address] [address] [address] Lorena GravesCreatinine [Mass/Vol]0.75 mg/dLNormal0.55-1.02The [facility] HospitalComment on above:Performed By: #### MG, CMP, PHOS #### [facility] [address] [address] [address] Lorena HuizarGFR-AF SALVADOREAN>60Normal>=60The [facility] HospitalComment on above:Performed By: #### MG, CMP, PHOS #### [facility] [address] [place] [address] Dr. Lorena HuizarGFR-NON AF SALVADOREAN>60Normal>=60The [facility] HospitalComment on above:Performed By: #### MG, CMP, PHOS #### [facility] [address] [place] [address] Dr. Lorena GravesGlobulin (S) [Mass/Vol]3.3 g/dLNormalThe [facility] HospitalComment on above:Performed By: #### MG, CMP, PHOS #### [facility] [address] [place] [address] Dr. Lorena GravesGlucose [Mass/Vol]101 mg/sNPnxqia71-123OsdMari[facility] Comment on above:Performed By: #### MG, CMP, PHOS #### [facility] [address] [place] [address] Dr. Lorena GravesPotassium [Moles/Vol]3.8 mmol/LNormal3.5-5.1The [facility] Comment on above:Performed By: #### MG, CMP, PHOS #### [facility] [address] [place] [address] Dr. Lorena GravesProtein [Mass/Vol]7.3 g/dLNormal6.4-8.2The [facility] Comment on above:Performed By: #### MG, CMP, PHOS #### [facility] [address] [place] [address] Dr. Lorena GravesSodium [Moles/Vol]137 mmol/FUdnqox230-463BxbMarietta Osteopathic Clinic Comment on above:Performed By: #### MG, CMP, PHOS #### [facility] [address] [place] [address] Dr. Lorena GravesUrea nitrogen [Mass/Vol]16.0 mg/dLNormal7.0-18.0The [facility] HospitalComment on above:Performed By: #### MG, CMP, PHOS #### [facility] [address] [place] [address] Dr. Lorena Trejo nitrogen/Creatinine [Mass ratio]21.3 mg/[facility] MemorialComment on above:Performed By: #### MG, CMP, PHOS #### [facility] [address] [place] [address] Dr. Lorena Navarro B12 AND FOLATEon 42-15-1916Jwfnsihrm (Vitamin B12) [Mass/Vol] 422.0 pg/qAKvrijz278.0-986.0The [facility] on above:Performed By: #### VITAD, B12FOL, IRON, FERR #### [facility] [address] [place] [address] Dr. Lorena GravesFOLATE18.20 ng/mLNormal8.60-58.90The [facility] on above:Performed By: #### VITAD, B12FOL, IRON, FERR #### [facility] [address] [place] [address] Dr. Lorena GravesVITAMIN D 25 OHon 05-80-5808SOU D 25-OH36.1 ng/mLNormalThe [facility] on above:Performed By: #### VITAD, B12FOL, IRON, FERR #### [facility] [address] [place] [address] Dr. Lorena Barahona [place] [facility]OWMi[facility] HospitalComcaro center on above: Result Comment: <20 ng/mL Vit D deficient 20 - <30 ng/mL Vit D insufficient 30 - 100 ng/mL Vit D sufficient >100 ng/mL Potential ToxicityPerformed By: #### VITAD, B12FOL, IRON, FERR #### [facility] [address] [place] [address] Dr. Lorena GravesVITAMIN B1 (THIAMINE)on 98-29-2749Diu. B1, Whole Rvipi899.0 nmol/PPibmvk24.5-200.0[facility] on above:Performed By: #### MG, CMP, PHOS #### [facility] [address] [place] [address] Dr. Lorena Barahona 25-OH LABCORPon 71-97-3990Cvlggcj D, 25-Mobcmwb96.3 ng/mL Abqguz56.0-100.0The [facility] HospitalComment on above:Result Comment: Vitamin D deficiency has been defined by the [place] [employer] and an Endocrine Society practice guideline as a level of serum 25-OH vitamin D less than 20 ng/mL (1,2). The Endocrine Society went on to further define vitamin D insufficiency as a level between 21 and 29 ng/mL (2). 1. IOM ([place] [employer]). 2010. Dietary reference intakes for calcium and D. [place]: The National Academies Press. 2. Derba MF, Mook [place], Javier KENNY, et al. Evaluation, treatment, and prevention of vitamin D deficiency: an Endocrine Society clinical practice guideline. JCEM. 2010; 96(7):1911-30.Performed By: #### MG CMP, PHOS #### [facility] [address] [place] [address] Dr. Lorena Bangura AUTO DIFFon 34-07-5240ABQC #0.0 103/ulNormal0.0-0.1[facility] ClinicComment on above:Performed By: #### MG, CMP, PHOS #### [facility] [address] [place] [address] Dr. Lorena GravesBasophils/100 WBC (Bld)0.4 %Normal0.2-2.0[facility] Comment on above:Performed By: #### MG, CMP, PHOS #### [facility] [address] [place] [address] Dr. Lorena Dailey #0.2 103/ulNormal0.0-0.7The [facility] HospitalComment on above: Performed By: #### MG, CMP, PHOS #### [facility] [address] [place] [address] Dr. Lorena Huizarosinophils/100 WBC (Bld)2.2 %Normal0.9-7.0The [facility] Comment on above:Performed By: #### MG, CMP, PHOS #### [facility] [address] [place] [address] Dr. Lorena Huizarrythrocyte distribution width (RBC) [Ratio]12.9 %Usqynz26.0-15.0 The [facility] HospitalComment on above:Performed By: #### MG, CMP, PHOS #### [facility] [address] [place] [address] Dr. Lorena GravesHematocrit (Bld) [Volume fraction]40.6 %Ejmdfy35.0-48.0The [facility] HospitalComment on above:Performed By: #### MG, CMP, PHOS #### [facility] [address] [place] [address] Dr. Lorena GravesHemoglobin (Bld) [Mass/Vol]13.2 g/iZYuyqdc77.0-16.0The [facility] Centerment on above:Performed By: #### MG, CMP, PHOS #### [facility] [address] [place] [address] Dr. Lorena Lozoya #0.01 10e3/ulNormal0.00-0.03The [facility] HospitalComcaro [facility] on above:Performed By: #### MG, CMP, PHOS #### [facility] [address] [place] [address] Dr. Lorena Lozoya %0.1 %Normal0.0-0.5The [facility]Com[facility] on above: Performed By: #### MG, CMP, PHOS #### [facility] [address] [place] [address] Dr. Lorena Pat #2.1 103/ulNormal1.2-3.8The [facility] HospitalComcaro center on above:Performed By: #### MG, CMP, PHOS #### [facility] [address] [place] [address] Dr. Lorena De La Vegahocytes/100 WBC (Bld)28.5 %Fdxfan85.5-60.0The [facility] HospitalComment on above:Performed By: #### MG, CMP, PHOS #### [facility] [address] [place] [address] Dr. Lorena Bose DIFF REQNONormalThe [facility]S HospitalComment on above: Performed By: #### MG, CMP, PHOS #### [facility] [address] [place] [address] Dr. Lorena Arias (RBC) [Entitic mass]29.8 eyJmcsgf34.7-34.0The [facility] HospitalComment on above:Performed By: #### MG, CMP, PHOS #### [facility] [address] [place] [address] Dr. Lorena Arias (RBC) [Mass/Vol]32.5 g/rAGrtxiv74.9-35.2The [facility] HospitalComment on above:Performed By: #### MG, CMP, PHOS #### [facility] [address] [place] [address] Dr. Lorena Arias (RBC) [Entitic vol]91.6 jBIdiego29.0-99.0The [facility] HospitalComment on above:Performed By: #### MG, CMP, PHOS #### [facility] [address] [place] [address] Dr. Lorena Baker #0.4 103/ulNormal0.3-0.8The [facility] HospitalComment on above:Performed By: #### MG, CMP, PHOS #### [facility] [address] [place] [address] Dr. Lorena Avilezocytes/100 WBC (Bld)6.1 %Normal1.7-12.0The [facility] Comment on above:Performed By: #### MG, CMP, PHOS #### [facility] [address] [place] [address] Dr. Lorena Torres #4.5 103/ulNormal1.4-6.5The [facility] HospitalComment on above:Performed By: #### MG, CMP, PHOS #### [facility] [address] [place] [address] Dr. Lorena Lawutrophils/100 WBC (Bld)62.7 %Bvfmxv36.0-75.0The [facility] HospitalComment on above:Performed By: #### MG, CMP, PHOS #### [facility] [address] [place] [address] Dr. Lorena Meridalet mean volume (Bld) [Entitic vol]10.9 fLNormal9.5-13.5The [facility] HospitalComment on above:Performed By: #### MG, CMP, PHOS #### [facility] [address] [place] [address] Dr. Lorena GravesPLT220 103/xsYhsmsv060-832Tia [facility] HospitalComment on above: Performed By: #### MG, CMP, PHOS #### [facility] [address] [place] [address] Dr. Lorena GravesRBC4.43 106/ulNormal4.20-5.40The [facility] HospitalComment on above:Performed By: #### MG, CMP, PHOS #### [facility] [address] [place] [address] Dr. Lorena GravesWBC7.2 103/ulNormal4.0-11.0The [facility] HospitalComment on above: Performed By: #### MG, CMP, PHOS #### [facility] [address] [place] [address] Dr. Lorena GrangerRIROHANon 56-25-8049Wfnxnrgr [Mass/Vol]22.0 ng/mLNormal8.0-252.0 The [facility] HospitalComment on above:Performed By: #### MG, CMP, PHOS #### [facility] [address] [place] [address] Dr. Lorena Jimenez AND TIBCon 09-22-2021% QQDJKVLGQT06.6 %NormalThe [facility]S HospitalComment on above:Performed By: #### MG, CMP, PHOS #### [facility] [address] [place] [address] Dr. Lorena Jimenez [Mass/Vol]60.0 ug/eJDmblgm09.0-170.0The [facility] Comment on above:Performed By: #### MG, CMP, PHOS #### [facility] [address] [address] [address] Lorena GravesTIBC PSIXZK120.0 ug/lHZkuosu224.0-450.0The [facility] Comment on above:Performed By: #### MG, CMP, PHOS #### [facility] [address] [place] [address] Dr. Lorena GravesMAGNESIUMon 93-48-8297Uumjultgn [Mass/Vol]2.1 mg/dLNormal1.8-2.4 The [facility] HospitalComment on above:Performed By: #### MG, CMP, PHOS #### [facility] [address] [place] [address] Dr. Lorena GravesPHOSPHORUSon 63-86-0338Cgoltmofx [Mass/Vol]5.0 mg/dLCritically high2.6-4.7The [facility] HospitalComment on above:Performed By: #### MG, CMP, PHOS #### [facility] [address] [place] [address] Dr. Lorena GravesPROF 14(COMP METB)on 40-47-3701Aosfkzh [Mass/Vol]4.2 g/dLNormal 3.4-5.0The [facility] HospitalComment on above:Performed By: #### MG, CMP, PHOS #### [facility] [address] [place] [address] Dr. Lorena GravesAlbumin/Globulin [Mass ratio]1.2 {ratio}NormalThe [facility]S HospitalComment on above:Performed By: #### MG, CMP, PHOS #### [facility] [address] [place] [address] Dr. Lorena ClintonP [Catalytic activity/Vol]121 U/LCritically ldse25-193Vfp [facility] HospitalComment on above:Performed By: #### MG, CMP, PHOS #### [facility] [address] [place] [address] Dr. Lorena ClintonT [Catalytic activity/Vol]46 U/HUmqowo32-71Ahk [facility] HospitalComment on above:Performed By: #### MG, CMP, PHOS #### [facility] [address] [address] [address] Lorena Harrisonon gap [Moles/Vol]12.4 mmol/LNormalThe [facility] Comment on above:Performed By: #### MG, CMP, PHOS #### [facility] [address] [place] [address] Dr. Lorena GravesAST [Catalytic activity/Vol]29 U/ZOpitfo80-24Zfv [facility] HospitalComment on above:Performed By: #### MG, CMP, PHOS #### [facility] [address] [place] [address] Dr. Lorena GravesBilirubin [Mass/Vol]0.5 mg/dLNormal0.2-1.0[facility] Comment on above:Performed By: #### MG, CMP, PHOS #### [facility] [address] [place] [address] Dr. Lorena GravesCalcium [Mass/Vol]9.1 mg/dLNormal8.5-10.1[facility] Comment on above:Performed By: #### MG, CMP, PHOS #### [facility] [address] [place] [address] Dr. Lorena GravesChloride [Moles/Vol]103 mmol/BIdvfta61-011Uon [facility] Comment on above:Performed By: #### MG, CMP, PHOS #### [facility] [address] [place] [address] Dr. Lorena GravesCO2 [Moles/Vol]26.2 mmol/CMbqkjq89.0-32.0The [facility] Comment on above:Performed By: #### MG, CMP, PHOS #### [facility] [address] [place] [address] Dr. Lorena GravesCreatinine [Mass/Vol]0.57 mg/dLNormal0.55-1.02The [facility] HospitalComment on above:Performed By: #### MG, CMP, PHOS #### [facility] [address] [place] [address] Dr. Lorena HuizarGFR-AF SALVADOREAN>60Normal>=60The [facility] Children'S HospitalComment on above:Performed By: #### MG, CMP, PHOS #### [facility] [address] [address] [address] Lorena HuizarGFR-NON AF SALVADOREAN>60Normal>=60The [facility]'S HospitalComment on above:Performed By: #### MG, CMP, PHOS #### [facility] [address] [address] [address] Lorena GravesGlobulin (S) [Mass/Vol]3.4 g/dLNormalThe [facility] Children'S HospitalComment on above:Performed By: #### MG, CMP, PHOS #### [facility] [address] [place] [address] Dr. Lorena GravesGlucose [Mass/Vol]110 mg/dLCritically ictb98-993Kwj [facility] HospitalComment on above:Performed By: #### MG, CMP, PHOS #### [facility] [address] [place] [address] Dr. Lorena GravesPotassium [Moles/Vol]3.6 mmol/LNormal3.5-5.1[facility] Comment on above:Performed By: #### MG, CMP, PHOS #### [facility] [address] [place] [address] Dr. Lorena GravesProtein [Mass/Vol]7.6 g/dLNormal6.4-8.2The [facility] Comment on above:Performed By: #### MG, CMP, PHOS #### [facility] [address] [place] [address] Dr. Lorena GravesSodium [Moles/Vol]138 mmol/PAfrogu399-653Wlo [facility] Comment on above:Performed By: #### MG, CMP, PHOS #### [facility] [address] [place] [address] Dr. Lorena GravesUrea nitrogen [Mass/Vol]14.0 mg/dLNormal7.0-18.0The [facility]S HospitalComment on above:Performed By: #### MG, CMP, PHOS #### [facility] [address] [address] [address] Lorena GravesUrea nitrogen/Creatinine [Mass ratio]24.6 mg/mgNoSt. John of God HospitalComment on above:Performed By: #### MG, CMP, PHOS #### [facility] [address] [place] [address] Dr. Lorena Navarro B12 AND FOLATEon 41-34-8266Bpxzlalrx (Vitamin B12) [Mass/Vol] 494.0 pg/gGSgjlpv353.0-986.0The [facility]S HospitalComment on above:Performed By: #### MG, CMP, PHOS #### [facility] [address] [place] [address] Dr. Lorena GravesFOLATE16.20 ng/mLNormal8.60-58.90The [facility] HospitalComcaro center on above:Performed By: #### MG, CMP, PHOS #### [facility] [address] [place] [address] Dr. Lorena ZamudioICOBACTER PYLORI AG STOOLon 05-12-2021H. pylori Stool Ag, EIA NegativeNormalNegativeThe [facility]'S HospitalComment on above:Performed By: #### MG, CMP, PHOS #### [facility] [address] [place] [address] Dr. Lorena GravesGLYCOHEMOGLOBIN A1Con 97-58-4361MXM RECOMMENDATIONADA THERAPEUTIC TARGET 6.0 - 7.0 ACTION SUGGESTED > 7.0NoSt. John of God HospitalComment on above:Performed By: #### MG, CMP, PHOS #### [facility] [address] [place] [address] Dr. Lorena GravesGlucose [Mass/Vol]140 mg/dLNoSt. John of God HospitalComment on above:Performed By: #### MG, CMP, PHOS #### [facility] [address] [place] [address] Dr. Lorena GravesHbA1c (Bld) [Mass fraction]6.5 %Critically high<=6.0The [facility]'S HospitalComment on above:Performed By: #### MG, CMP, PHOS #### [facility] [address] [address] [address] Lorena GravesSAINT FRANCIS [facility]ALTH[facility] PHYSICALon 50-86-4059SFGBEXM PHYSICALHNO ID: [id number]: Michell Ferrercleveland clinic medina hospitalice: (none)Author Type: (none)Type: HANDPFiled: 12/05/2016 4:40 PMNote Text:COSMETIC SURGERY ISLANDIAMIL AGUILAR DO FACOSFOLLOW-UPName: Merrick MandieN: [id number] HPI AND PERTINENT ROS:46-year-old female presents in consultation for bilateral breastreduction. He has hypertension controlled on medication and is on Protonixthat relieves her digestion ssues..PHYSICAL EXAM:GEN: Alert, oriented, NADLUNGS: Unlabored breathingPERTINENT: patientis 5 foot 10 240 pounds with extremely large breasts.She has a long distance from her sternal notchto carlos. Nipple areoalacomplex. She has neck and back [...] amammogram report must go with insurance Michell HarveyCorewell Health [facility] 2016NoChildren[facility] for [facility] 25-05-5915GVZNZLMYGKB ID: [id number]: Mil AguilarService: (none)Author Type: PhysicianType: ProgressNotesFiled: 12/05/2016 4:40 PMNote Text:COSMETIC SURGERY ISLANDIAMIL AGUILAR DO FACOSName: Merrick MandieN: [id number] see her today in consultation for bilateral [...] of the patient or me. If the scarsare toothick, we have talked about intervention in [...] common in diabetic patients and smokers, who sharethe problem ofdiminished circulation. If this were to occur, the patient would requirefurther reconstruction. Bleeding or hematoma formation requiring drainagemay occur and the patient may have drains post operatively. Infection israre and all my patients receive antibiotics. Decreased nipple or ski nsensation can occur but usually returns to normal in about 3 to 6 months,but can be permanent. Areas of firmness or fat necrosis may require biopsyor excision. Asymmetry is usually present before surgery and may be thereafterwards. Depending on the size of the breasts, the patient may requirea free nipple graft. The ability to breast-feed depends upon whether theprocedure is done on a pedicle orfree nipple graft technique and we havediscussed these techniques in detail. Free nipple grafts canresult inscarring irregularity as well as pigment loss. [...] BEEN EXPLAINED IN DETAIL NOT TO TAKE ASPIRIN,ASPIRIN- CONTAINING PRODUCTS AND VITAMIN E FOR TWO TO THREE WEEKS PRIOR TOELECTIVE SURGERY THESE INCREASE THE RISK OF BLEEDING AND HEMATOMAFORMATION. THE PATIENT WAS INFORMED THAT SMOKERS HAVE A GREATER RISK OFSKIN LOSS, SCARRING AND WOUND HEALING COMPLICATIONS. THE PATIENT WAS GIVENNO GUARANTEE OF RESULTS. If we have to return tosurgery to correct anyproblems, I have discussed in detail with the patient that if this returnto the O.R. is not covered by insurance, I do not charge the patient,however, there will be a charge forthe O.R. and anesthesia, over which Ihave no control. MAF/nn (Dictated, but not read.)Any concerns or questions prior to next appointment, patient is to calloffice or return sooner.Mil Aguilar, DOOctober 2016This note was generated with voice recognition software and may containerrors, including spelling, grammar, syntax and misrecognition of what wasdictated, that are not fully corrected.Normal [facility] Vital Signs Date TimeVital SignValuePerforming HdmevtupkCjnvjvfv62-65-2499 09:42-0400Body .9 kgShelbi hCarles NP Work Phone: [facility]'sFqpioqzifo14-53-0927 09:42-0400Diastolic blood qeeskexo03 mm[Hg]Shelbi Charles NP Work Phone: [facility]'sCtxchybqjf26-29-5980 09:42-0400Systolic blood pdhmzexf655 mm[Hg]Shelbi Charles NP Work Phone: [facility] Encounters Encounter DateEncounter TypeCare ProviderFacilityStart: 12-04-2024 End: 93-13-0811htfepwntswEGVRWTZE EBERLYFacility:FTMCStart: 11-26-2024 End: 11-41-2873ryyzyurkssEvowv R FAZIOFacility:GS BellevueStart: 11-26-2024 End: 16-89-2543Zsytynd encounter procedureMichael R NILL [phone]-VokyhParma Community [facility] General Surgery Doris Start: 22-88-8229qkiegwubivRYRYLLMH EBERLYFacility:GS BellevueStart: 10-22-2024 End: 67-52-6415Qtlvlj flowsChe Charles ASSOCIATE FINANCIAL ADVISOR Work Phone: [facility]is OBGYNStart: 10-22-2024 End: 83-83-2139Ynsuvy flowsChe Charles ASSOCIATE FINANCIAL ADVISOR Work Phone: [facility] OBGYNStart: 10-22-2024 End: 14-44-3096Cgvyftteb Result EncounterShelbi Charles NP Work Phone: [facility] External Department UnsolicitedStart: 10-22-2024 End: 77-47-6051Mvhfbee encounter procedureShelbi Charles NP Work Phone: [facility] Work Phone: Start: 10-22-2024 End: 43-20-7148Yhyyxmwo preventive med est patient 40-64yrsKristina Araceli ASSOCIATE FINANCIAL ADVISOR Work Phone: [facility] OBGYNComment on above:Well woman exam with routine gynecological exam; Breast cancer screening by mammogram; Postmenopausal state; Menopausal vaginal drynessStart: 10-22-2024 End: 00-64-3588cjmwqgdgyaTDXYEVYV EBERLYNot AvailableStart: 02-13-2022 End: 19-55-3194jjndslhrxaMS CHARLES HOUSEFacility:V8Fbisv: 01-12-2022 End: 37-21-3642knyfdcbwcxDXMLM LALORFacility:D3Upvjb: 09-22-2021 End: 37-16-4945bdxyksqcbaFT DOCTOR MISCFacility:S6Eedfu: 05-10-2021 End: 38-60-6201tkvmrughnsUIXWA LALORFacility:V0Dvxuc: 04-07-2021 End: 69-16-9631tidgtwahgjSQ MERRY HOUSEFacility:H1 Procedures DateProcedureProcedure DetailPerforming ClinicianStart: 87-76-6067XMY,APTIMA HPV,AGE GDLNShelbi Araceli ASSOCIATE FINANCIAL ADVISOR Work Phone: Start: 19-87-9707Uyanfn of stomachMichael NILL Endometrial ablationMichael NILL Excision of cystMichael NILL Extraction of wisdom toothMichael NILL Reduction mammoplastyMichael NILL TonsillectomyMichael NILL Plan of Treatment DateCare ActivityDetailAuthorStart: 10-22-2024 End: 48-63-6104IAC Skeletal system Views for bone densityDEXA bone density Imaging Routine Postmenopausal state Expected: 10/22/2024 (Approximate), Expires:10/22/2025[facility] HealthcareComment on above:Expected: 10/22/2024 (Approximate), Expires: 10/22/2025Start: 10-22-2024 End: 76-75-6071DO Breast - bilateral ScreeningBilateral screening mammogram Imaging Routine Breast cancer screening by mammogram Expected: 10/22/2024, Expires: 12/22/[facility] Work Phone: comment on above:Expected: 10/22/2024, Expires: 12/22/2025Start: 97-04-9811Fgvhztapn vaccinationInfluenza Vaccine (#1)[facility] HealthcareStart: 02-61-3199Dwtgoobzm for malignant neoplasm of breastMammogram [facility] HealthcareStart: 33-14-5727Vykuzsyml for malignant neoplasm of cervixNOMS HealthcareStart: 30-01-3177Ktabfxqut for malignant neoplasm of cervixPap Smear [facility] HealthcareStart: 22-86-6036Fuuzezjdj for malignant neoplasm of colonNOMS HealthcareTHIN PREP TIS PAP AND HR HPV DNATHIN PREP TIS PAP AND HR HPV DNA Pathology and Cytology Routine Well woman exam with routine gynecological exam Ordered: 10/22/2024N[facility] HealthcareComment on above:Ordered: 10/22/2024 Immunizations Immunization DateImmunizationNotesCare ZroeqrpqJlzrqeku13-98-9881HNZE-HeR-3 (COVID-19) mRNA BNT-162b2 vaxMichael NILL [phone]-UyxsqParma Community General Hospital General Surgery [place] 97-02-5430XQMK-CoV-2 (COVID-19) mRNA BNT-162b2 vaxMichael NILL [phone]-OxvziParma Community General Hospital General Surgery [place] 32-59-0782dtcqmbxvi virus vaccine, unspecified formulationShelbi Charles ASSOCIATE FINANCIAL ADVISOR Work Phone: [facility] Payers DatePayer CategoryPayerPolicy [id number] Health [id number] [id number] 2..1.577476.3.579.2. [id number] 2..1.648942.3.57[id number] 2..1.752291.3.57[id number] 2..1.672218.3.57[id number] 2..1.657787.3.57[id number] 2..1.665509.3.57[id number] 2..1.951516.3.57[id number] 2.0.[id number] Social History DateTypeDetailFacilityTobacco smoking status NHISTobacco smoking consumption unknownNOWA HealthcareStart: 97-03-5609Occ assigned at birthNot on [facility] CenterGender identityNot on [facility] Centertart: 58-75-8689Cweywep smoking statusNever smoked tobacco (finding)[facility] HospitalueTobacco smoking statusNeverAdena [facility] HospitalueSexual OrientationAdena [facility] Surgery [facility] Start: 80-34-8859AzrBmmopd (finding)[facility] Clinical Note 11-26-2024 Note Date & MpptBdisRvxbbgjo17-96-8497 NoteGeneral Surgery Office/Clinic Note Chief Complaint consultation for colonoscopy HPI Staff 54 year old female presents on consultation from Dr. Barrett for screening colonoscopy. Denies abdominal or rectal pain. No rectal bleeding or change in bowel habits. Denies nausea, vomiting or weight loss. Never had colonoscopy in the past. No known family history of colon cancer. History of Present Illness 54 yo female referred for colorectal screening; denies change in bms or blood in stools, no abd complaints; abd operations significant for gastric bypass; no previous colonoscopy; no asa or NSAID use; no tobacco use; no fmhx of GI malignancy or IBD. Review of Systems PHQ Score Initial Depression Screen Score: 0 SCORE ROS - Provider Constitutional: no fever, no sweats, no weight loss. Eyes: no glasses, no blurred vision, no visual loss. ENMT: no dentures, no hoarseness, no swallowing difficulties, no hearing loss, no ear infection(s),no nose bleeds. Cardiovascular: normal blood pressure, no chest pain, regular heartbeat, no heart murmur. Respiratory: no shortness of breath, no cough, no asthma, no wheezing. Gastrointestinal: no nausea, no vomiting, no diarrhea, no constipation, no blood in stool, no change in bowel habits, no abdominal pain, no hepatitis. Genitourinary: no kidney stones, no urine infection, no dysuria. Musculoskeletal: no pain, no weakness. Skin: no changing moles, no rash, no skin lumps. Neurologic: no seizures, no epilepsy, no headache. Psychiatric: no emotional or psychiatric problem. Heme/Lymph: no bleeding problems, no anemia, no blood clots, no transfusions. Allergy/Immunologic: no swollen lymph nodes/glands, no IV drug abuse. Other: Additional ROS info: Except as noted in the above Review of Systems and in the History of Present Illness, all other systems have been reviewed and are negative or noncontributory. Physical Exam Vitals & Measurements HR: 76(Peripheral) RR: 16 BP: 128/88 HT: 72 in HT: 182.8 cm WT: 202.605 lb WT: 91.9 kg BMI: 27.5 HEENT: normal conjunctiva, sclera clear, no scleral icterus, EOM intact, PERRLA, oral mucosa moist without lesions. Neck: trachea midline, no mass, symmetric, no thyromegaly or nodules, no adenopathy Respiratory: lungs CTA, respirations non labored. Cardiovascular: regular rate and rhythm, no murmur, no pedal edema or varicosities. Gastrointestinal: soft, non distended, no tenderness, no masses, no palpable hernias, diastasis recti no, no hepatosplenomegaly; normal bs Musculoskeletal: normal gait, digits and nails without infection, nodes, cyanosis, clubbing. Skin: no rashes, no lesions, no ulcers, no subcutaneous nodules, induration. Psychiatric/Neuro: oriented to time, place, person, judgement normal, affect appropriate for age, insight intact, no focal deficits. Tests: review of old records completed , Discussed surgical options, risks, and possible complications with patient. Assessment/Plan 1. Screening for malignant neoplasm of colon (Z12.11: Encounter for screening for malignant neoplasm of colon) plan colonoscopy under anesthesia, informed consent obtained. Follow-up No qualifying data available Problem List/Past Medical History Ongoing BMI 27.0-27.9,adult Obesity due to excess calories Screening for malignant neoplasm of colon Historical No qualifying data Procedure/Surgical History Gastric bypass (07/2021), Breast reduction, Endometrial ablation, Excision of cyst, Extraction of wisdom tooth, Tonsillectomy. Medications estradiol 0.1 mg/g Vag Crm, as directed magnesium oxide 400 mg Tab, 400 mg= 1 tab(s), Oral, Daily, PRN multivitamin, 1 tab(s), Oral, Daily Allergies No Known Allergies No Known Medication Allergies Social History Alcohol Current. Wine, Liquor. 1-2 times per month., 11/25/2024 Substance Abuse Never., 11/25/2024 Tobacco Never (less than 100 in lifetime) Tobacco Use:. Never Smokeless Tobacco Use:., 11/26/2024 Family History COPD: Mother. Dementia: Mother. Heart disease: Mother, Father and Brother. Immunizations Vaccine Date Status SARS-CoV-2 (COVID-19) mRNA BNT-162b2 vax 05/27/2020 Recorded SARS-CoV-2 (COVID-19) mRNA BNT-162b2 vax 05/07/2020 RecordedHolzer HospitalComment on above:Result Comment: Electronically Signed By: COLIN MOTT, Luke Church\Date and Time Signed: 11/26/24 16:07 EDT History of Present illness Narrative 10-22-2024 Note Date & MdplEhhfIgxtiyec78-02-6259 History of Present illness Narrative* Shelbi Charles, ERIKA - 10/22/2024 9:30 AM EDT Reason for Appointment: Patient ID: Merrick Pat is a 53 y.o. female who presents for Well Women Visit Patient presents today for Annual Exam. MEDICATIONS Current Outpatient Medications Medication Instructions magnesium oxide (MAG-OX) 400 mg, Daily Multiple Vitamin (multivitamin) tablet 1 tablet, Daily ALLERGIES No Known Allergies PROBLEMS Active Ambulatory Problems Diagnosis Date Noted No Active Ambulatory Problems Resolved Ambulatory Problems Diagnosis Date Noted No Resolved Ambulatory Problems No Additional Past Medical History HISTORY PAST MEDICAL HISTORY SOCIAL HISTORY History reviewed. No pertinent past medical history. Social History Tobacco Use Smoking status: Not on file Smokeless tobacco: Not on file Substance Use Topics Alcohol use: Not on file Drug use: Not on file FAMILY HISTORY Family History Problem Relation Name Age of Onset Heart disease Mother Osteoporosis Mother Heart disease Father Heart disease Brother SURGICAL HISTORY Past Surgical History: Procedure Laterality Date BREAST SURGERY reduction ENDOMETRIAL ABLATION 2018 GASTRIC BYPASS 07/2021 TONSILLECTOMY WISDOM TOOTH EXTRACTION REVIEW OF SYSTEMS Review of Systems: Review of Systems Constitutional: Positive for night sweats. HENT: Negative. Eyes: Negative. Respiratory: Negative. Cardiovascular: Negative. Gastrointestinal: Negative. Genitourinary: Negative. Positive for vaginal dryness. Musculoskeletal: Negative. Skin: Negative. Neurological: Negative. All other systems reviewed and are negative. Hematological: Negative. Endocrine: Negative. Allergic/Immunologic: Negative. OBJECTIVE Objective: Physical Exam Constitutional: Appearance: Normal appearance. She is well-developed. Genitourinary: Vulva normal. Cardiovascular: Rate and Rhythm: Normal rate and regular rhythm. Pulmonary: Effort: Pulmonary effort is normal. Breath sounds: Normal breath sounds. Abdominal: General: Bowel sounds are normal. There is no distension. Palpations: Abdomen is soft. Tenderness: There is no abdominal tenderness. There is no guarding or rebound. Musculoskeletal: General: No swelling. Normal range of motion. Right lower leg: No edema. Left lower leg: No edema. Neurological: Mental Status: She is alert and oriented to person, place, and time. Skin: General: Skin is warm and dry. Psychiatric: Mood and Affect: Mood normal. Behavior: Behavior normal. Vitals and nursing note reviewed. Exam conducted with a dependency counselor present. Vitals: There is no height or weight on file to calculate BMI. BP: 120/80 No LMP recorded. Patient has had an ablation. ASSESSMENT & PLAN ICD-10-CM 1. Well woman exam with routine gynecological exam Z01.419 THIN PREP TIS PAP AND HR HPV DNA 2. Breast cancer screening by mammogram Z12.31 Bilateral screening mammogram Bilateral screening mammogram 3. Postmenopausal state Z78.0 DEXA bone density Annual: Patient presents today for an annual exam. Patient states she is doing well and has no complaints. Pap was obtained without difficulty and patient given mammogram order to have scheduled/obtained. Patient would like to have Colonoscopy referral to [facility] as insurance covers them. Patient willhave referral to Dr. Martinez. Patient does have some vaginal dryness. Discussed medications with patient for HRT and discussed using the Patch as this does bypass the liver as she had high liver numbersrecently. Discussed vaginal estrogen for the dryness and script sent at this time and she is to call for the medication continuation. Patient does experience hot flashes at night but does not want totrial HRT, Effexor or Veozah at this time. Orders Placed This Encounter Procedures Bilateral screening mammogram DEXA bone density Follow Up: Patient is to return in one year for annual unless needed otherwise. Documented by Sagrario Soto LPN on behalf of: Shelbi Charles NP documented in this encounterNOWA Healthcare Evaluation + Plan note Note Date & TypeNoteFacilityEvaluation + Plan note Future Appointments Appointment Date:12/04/2024 08:15:00 AM Scheduled Provider: Location:FT.MAMMOGRAM Appointment Type:MA Screen (FT) Appointment Date:12/04/2024 08:30:00 AM Scheduled Provider: Location:FT.BD Appointment Type:BD Bone Density (FT) Appointment Date:12/19/2024 09:15:00 AM Scheduled Provider: Location:[facility] Appointment Type:Surgery FT Future Scheduled Tests Radiology* BD Bone Density DEXA 12/04/24 * MA Mamm Screen w/CAD if perf and 3D Carlos 12/04/24 [facility] [place] Evaluation note Note Date & TypeNoteFacilityEvaluation note* Diagnosis Well woman exam with routine gynecological exam Routine gynecological examination Breast cancer screening by mammogram Postmenopausal state Asymptomatic postmenopausal status (age-related) (natural) Menopausal vaginal dryness documented in this encounter [facility] Hospital course Narrative Note Date & TypeNoteFacilityHospital course Narrative No data available for this section [facility] Hospital Discharge instructions Note Date & TypeNoteFacilityHospital Discharge instructions No data available for this section [facility] [place] Progress note Note Date & TypeNoteFacilityProgress note No data available for this section [facility] [place] Summary Purpose Family History No Family History Records FoundNo Family History Records FoundNo Family History Records Found No data available for this section No Family History Records Found Advance Directives No Advanced Directives Records FoundNo Advanced Directives Records FoundNo Advanced Directives Records FoundNo Advanced Directives Records Found Additional Source Comments INFORMATION SOURCE (unrecogn ized section and content) DATE CREATED AUTHOR 07/31/2017 [facility] DATE CREATED AUTHOR AUTHOR'S ORGANIZ ATION 02/15/2022 [facility] DATE CREATED AUTHOR AUTHOR'S ORGANIZ ATION 10/23/2024 [facility] DATE CREATED AUTHOR AUTHOR'S ORGANIZ ATION 12/12/2024 [facility] Reason for Visit (unrecogniz ed section and content) ReasonCommentsWell Women Visit Patient Care team informatio n (unrecognized section and content) Personnel Name: SHELBI CHARLES CNP [employer]: FOR RECORDS PERTAINING TO PATIENTS WHO ARE [...] BE BASED ON THE PRIMARY CLINICAL RECORDS. [employer] [facility]. provides no warranty or guarantee of the accuracy or completeness of information in this document.
[2025-01-15 11:50] LABS: Alanine Aminotransferase 62 U/L (14-59); Albumin Globulin Ratio 1.2; Albumin Level 3.8 g/dL (3.4-5.0); Alkaline Phosphatase 140 U/L (46-116); Anion Gap 9.4; Aspartate Amino Transferase 34 U/L (15-37); Blood Urea Nitrogen 14.0 mg/dL (7.0-18.0); Calcium 8.8 mg/dL (8.5-10.1); Carbon Dioxide 30.3 mmol/L (21.0-32.0); Chloride 107 mmol/L (98-107); Cholesterol 175 mg/dL (<=200); Estimated GFR (African America >60 (>=60 mL/min/1.73m^2); Estimated GFR (Non-African Ame >60 (>=60 mL/min/1.73m^2); Globulin 3.1 g/dL; Glucose 102 mg/dL (74-106); HDL Cholesterol 72 mg/dL (40-60); Potassium 3.7 mmol/L (3.5-5.1); Sodium 143 mmol/L (136-145); Thyroid Stimulating Hormone 1.443 uIU/mL (0.358-3.740); Total Protein 6.9 g/dL (6.4-8.2); Triglycerides 45 mg/dL (<=150); VLDL CHOLESTEROL 9.0 mg/dL
== END 2025-01-15 08:50 | disposition home or self-care (01) ==
LOC: LAB 08:51
PROVIDERS: PCP Family Medicine; Visit Provider Family Medicine
DX: Z00.00 Encounter for general adult medical examination without abnormal findings (principal); K76.0 Fatty (change of) liver, not elsewhere classified; R79.89 Other specified abnormal findings of blood chemistry; R94.39 Abnormal result of other cardiovascular function study
CPT/HCPCS: 36415; 80053; 80061; 80074; 84443